=== PATIENT | female | born 1995 | race African-American/Black ===

== ENCOUNTER 2018-04-11 10:53 | Emergency (ER) | payer SELFPAY ==
[2018-04-11 11:42] LABS: BILIRUBIN,URINE NEGATIVE (NEG); CLARITY,URINE CLEAR; COLOR,URINE YELLOW; GLUCOSE,URINE NEGATIVE (NEG); NITRITE,URINE NEGATIVE (NEG); PROTEIN,URINE NEGATIVE (NEG-TRACE); UROBILINOGEN,URINE 0.2 mg/dL (0.2 mg/dL)
[2018-04-11 11:44] LABS: NEG OBC UR NEG; POS OBC UR POS; U PREG PATIENT NEGATIVE (NEG)
[2018-04-11 11:52] LABS: BACTERIA,URINE MANY /HPF (0-FEW); SQUAMOUS EPITHELIAL CELL,UR MANY /LPF
[2018-04-11 12:05] LABS: ADD MAN DIFF? NO
[2018-04-11 12:08] LABS: BASO # 0.1 x10^3/uL (0.0-0.2); BASO % 1 % (0-3); EOS # 0.1 x10^3/uL (0.0-0.7); EOS % 2 % (0-3); HEMATOCRIT 37.3 % (36.0-47.0); LYMPH # 2.2 x10^3/uL (1.0-4.8); LYMPH % 42 % (24-48); MEAN CORPUSCULAR HEMOGLOBIN 25 pg (25-35); MEAN CORPUSCULAR HGB CONC 32 g/dL (31-37); MEAN CORPUSCULAR VOLUME 76 fL (79-100); MONO # 0.3 x10^3/uL (0.0-1.1); MONO % 6 % (0-9); NEUT # 2.5 x10^3uL (1.8-7.7); NEUT % 49 % (31-73); PLATELET COUNT 277 x10^3/uL (140-400); RED BLOOD COUNT 4.88 x10^6/uL (3.50-5.40); RED CELL DISTRIBUTION WIDTH 18.8 % (11.5-14.5); WHITE BLOOD COUNT 5.1 x10^3/uL (4.0-11.0)
[2018-04-11 12:15] LABS: ANION GAP 6 (6-14); BLOOD UREA NITROGEN 11 mg/dL (7-20); BUN/CREATININE RATIO 14 (6-20); CALCIUM 9.1 mg/dL (8.5-10.1); CARBON DIOXIDE 31 mmol/L (21-32); CHLORIDE 104 mmol/L (98-107); CREATININE 0.8 mg/dL (0.6-1.0); GFR 109.6; GLUCOSE 86 mg/dL (70-99); POTASSIUM 4.2 mmol/L (3.5-5.1); SODIUM 141 mmol/L (136-145)
[2018-04-11 12:21] LABS: ALBUMIN 3.8 g/dL (3.4-5.0); ALBUMIN/GLOBULIN RATIO 0.9 (1.0-1.7); ALK PHOS 62 U/L (46-116); ALT (SGPT) 15 U/L (14-59); AST (SGOT) 17 U/L (15-37); TOTAL BILIRUBIN 0.2 mg/dL (0.2-1.0); TOTAL PROTEIN 7.9 g/dL (6.4-8.2)
== END 2018-04-11 14:30 | disposition home or self-care (01) ==
LOC: ER 10:53
DX: N92.1 Excessive and frequent menstruation with irregular cycle (principal); R10.32 Left lower quadrant pain; N90.7 Vulvar cyst; Z88.0 Allergy status to penicillin
CPT/HCPCS: 36415; 76830; 76856; 80053; 81001; 81025; 85025; 87491; 87591; 99285-25

== ENCOUNTER 2018-09-26 13:25 | Emergency (ER) | payer SELFPAY ==
[~2018-09-26] VITALS: Ht 165.1 cm; Wt 57.6 kg
[~2018-09-26 13:25] MED LIST: METR500T PO; SULF1TAB24 PO
[2018-09-26 13:58] LABS: BILIRUBIN,URINE NEGATIVE (NEG); CLARITY,URINE CLOUDY; COLOR,URINE YELLOW; NITRITE,URINE POSITIVE (NEG); PH,URINE 7.5; PROTEIN,URINE NEGATIVE (NEG-TRACE); UROBILINOGEN,URINE 0.2 mg/dL (0.2 mg/dL)
[2018-09-26 14:03] LABS: SQUAMOUS EPITHELIAL CELL,UR MANY /LPF
[2018-09-26 14:05] LABS: BACTERIA,URINE MANY /HPF (0-FEW); RBC,URINE 0 /HPF (0-2); WBC,URINE >40 /HPF (0-4)
[2018-09-26] MEDS ORDERED: IBUPROFEN 600 MG TABLET. PO ONE (14:15)
[2018-09-26] MEDS ORDERED: METR500T PO (15:54)
[2018-09-26] MEDS ORDERED: DOXY100T PO (15:54)
[2018-09-26] MEDS ORDERED: SULF1TAB24 PO (15:54)
[2018-09-26 16:04] VITALS: BP 116/70
--- NOTE | 2018-09-26 16:13 | PHYS DOC ---
Past Medical History Past Medical History: Asthma, Other Additional Past Medical Histor: kidney stones Past Surgical History: No Surgical History Alcohol Use: None Drug Use: None Adult General Chief Complaint Chief Complaint: SEXUALLY TRANSMITTED DISEASE HPI HPI Patient is a 23 year olD female who presents with right lower abdominal discomfort as well as vaginal discharge for the last 3 days. Apparently her boyfriend's mother called her and told her to get checked for STDs. She has dysuria. Review of Systems Review of Systems Constitutional: Denies fever or chills [] Eyes: Denies change in visual acuity, redness, or eye pain [] HENT: Denies nasal congestion or sore throat [] GI: Denies abdominal pain, nausea, vomiting, bloody stools or diarrhea [] : Denies dysuria or hematuria [] Musculoskeletal: Denies back pain or joint pain [] Integument: Denies rash or skin lesions [] All other systems were reviewed and found to be within normal limits, except as documented in this note. Current Medications Current Medications Current Medications Medications (Trade) Dose Ordered Sig/Alexandra Start Time Stop Time Status Last Admin Dose Admin Ibuprofen (Motrin) 600 mg 1X ONCE 09/26/18 14:15 09/26/18 14:16 DC 09/26/18 15:20 600 MG Allergies Allergies Allergies Coded Allergies Type Severity Reaction Last Updated Verified Penicillins Allergy Mild vomiting, 12/09/13 Yes Physical Exam Physical Exam Constitutional: Well developed, well nourished, no acute distress, non-toxic appearance. [] HENT: Normocephalic, atraumatic, bilateral external ears normal, oropharynx moist, no oral exudates, nose normal. [] Eyes: PERRLA, EOMI, conjunctiva normal, no discharge. [] Pulmonary: Normal respiratory effort no increased work of breathing no obvious chest wall trauma Abdomen: Bowel sounds normal, soft, mild suprapubic tenderness, no masses, no pulsatile masses. [] : THERE IS MODERATE D/C NO ADNEXAL OR CMT Skin: Warm, dry, no erythema, no rash. [] Back: No tenderness, no CVA tenderness. [] Extremities: No tenderness, no cyanosis, no clubbing, ROM intact, no edema. [] Neurologic: Alert and oriented X 3, normal motor function, normal sensory function, no focal deficits noted. [] Psychologic: Affect normal, judgement normal, mood normal. [] Current Patient Data Vital Signs Vital Signs Date Time Temp Pulse Resp B/P (MAP) Pulse Ox O2 Delivery O2 Flow Rate FiO2 09/26/18 15:06 68 16 122/74 (90) 100 Room Air 09/26/18 13:30 98.2 98.2 Lab Values Laboratory Tests Test 09/26/18 13:35 09/26/18 13:52 Urine Collection Type Unknown Urine Color Yellow Urine Clarity Cloudy Urine pH 7.5 Urine Specific [place] 1.015 Urine Protein Negative mg/dL (NEG-TRACE) Urine Glucose (UA) Negative mg/dL (NEG) Urine Ketones (Stick) Negative mg/dL (NEG) Urine Blood Small (NEG) Urine Nitrite Positive (NEG) Urine Bilirubin Negative (NEG) Urine Urobilinogen Dipstick 0.2 mg/dL (0.2 mg/dL) Urine Leukocyte Esterase Moderate (NEG) Urine RBC 0 /HPF (0-2) Urine WBC >40 /HPF (0-4) Urine Squamous Epithelial Cells Many /LPF Urine Bacteria Many /HPF (0-FEW) POC Urine HCG, Qualitative Hcg negative (Negative) Microbiology 09/26/18 Wet Prep - Final, Complete EKG EKG [] Radiology/Procedures Radiology/Procedures [] Course & Med Decision Making Course & Med Decision Making Pertinent Labs and Imaging studies reviewed. (See chart for details) []UTI suggestive and urinalysis we will treat for that with Bactrim. Patient has a penicillin allergy she describes facial swelling so I will avoid ceftriaxone although it is low risk overall I think we should wait for a confirmed gonorrhea. She knows there is a culture pending and to have her phone number available for phone call. She was treated for possible chlamydia with doxycycline as well as Flagyl for bacterial vaginosis. Dragon Disclaimer Dragon Disclaimer This electronic medical record was generated, in whole or in part, using a voice recognition dictation system. Departure Departure Impression: Primary Impression: Urinary tract infection Additional Impression: UTI (lower urinary tract infection) Disposition: 01 HOME, SELF-CARE Condition: STABLE Referrals: ELIOT ANTONIO MD (PCP) Patient Instructions: Bacterial Vaginosis, [id number] Scripts Sulfamethoxazole/Trimethoprim (BACTRIM DS TABLET) 1 Each Tablet 1 TAB PO BID, #14 TAB Prov: DARRELL SIMPSON MD 09/26/18 Metronidazole (FLAGYL) 500 Mg Tablet 1 TAB PO BID, #14 TAB Prov: DARRELL SIMPSON MD 09/26/18 Doxycycline Hyclate (DOXYCYCLINE HYCLATE) 100 Mg Tablet 1 TAB PO BID, #28 TAB Prov: DARRELL SIMPSON MD 09/26/18 Problem Qualifiers DARRELL SIMPSON MD Sep 26, 2018 16:13
[2018-09-27 13:22] LABS: GC PROBE Negative (Negative)
== END 2018-09-26 16:11 | disposition home or self-care (01) ==
LOC: ER 13:25
DX: N39.0 Urinary tract infection, site not specified (principal); J45.909 Unspecified asthma, uncomplicated; Z87.442 Personal history of urinary calculi; Z88.0 Allergy status to penicillin
CPT/HCPCS: 81001; 81025; 87491; 87591; 99283; Q0111

== ENCOUNTER 2019-07-20 14:07 | Inpatient (IN) | payer OTHER ==
[~2019-07-20] VITALS: Ht 165.1 cm; Wt 53.5 kg
[~2019-07-20 14:07] MED LIST changes: +DOXY100T PO
[2019-07-20 15:27] LABS: BASO % 0 % (0-3); EOS % 0 % (0-3); HEMATOCRIT 36.9 % (36.0-47.0); HEMOGLOBIN 12.3 g/dL (12.0-15.5); LYMPH # 1.3 x10^3/uL (1.0-4.8); LYMPH % 13 % (24-48); MEAN CORPUSCULAR HEMOGLOBIN 28 pg (25-35); MEAN CORPUSCULAR HGB CONC 33 g/dL (31-37); MEAN CORPUSCULAR VOLUME 82 fL (79-100); MONO # 1.5 x10^3/uL (0.0-1.1); MONO % 15 % (0-9); NEUT # 7.2 x10^3/uL (1.8-7.7); NEUT % 71 % (31-73); PLATELET COUNT 244 x10^3/uL (140-400); RED BLOOD COUNT 4.48 x10^6/uL (3.50-5.40); WHITE BLOOD COUNT 10.1 x10^3/uL (4.0-11.0)
[2019-07-20 15:35] LABS: BILIRUBIN,URINE NEGATIVE (NEG); CLARITY,URINE CLEAR; COLOR,URINE YELLOW; NITRITE,URINE NEGATIVE (NEG); PROTEIN,URINE NEGATIVE (NEG-TRACE); UROBILINOGEN,URINE 0.2 mg/dL (0.2 mg/dL)
[2019-07-20 15:40] LABS: CALCIUM 9.4 mg/dL (8.5-10.1); CREATININE 0.6 mg/dL (0.6-1.0); GFR 151.3; POTASSIUM 4.1 mmol/L (3.5-5.1)
[2019-07-20 15:42] LABS: ALBUMIN 3.5 g/dL (3.4-5.0); ALBUMIN/GLOBULIN RATIO 0.8 (1.0-1.7); TOTAL BILIRUBIN 0.1 mg/dL (0.2-1.0); TOTAL PROTEIN 7.8 g/dL (6.4-8.2)
[2019-07-20 15:46] LABS: BACTERIA,URINE FEW /HPF (0-FEW); SQUAMOUS EPITHELIAL CELL,UR MANY /LPF
--- NOTE | 2019-07-20 15:49 | RAD ---
Indication:Pelvic cramps. 12 weeks . TECHNIQUE: Ultrasound OB less than 14 weeks. COMPARISON: None FINDINGS: Single intrauterine seen. [place]-rump length measures 4.92 cm corresponding to estimated gestation age of 11 weeks 5 days. Heart rate of 169 bpm. Cervix is closed. Right ovary measures 3.0 x 1.6 x 1.6 cm and shows evidence of blood flow. Left ovary measures 2.7 x 1.2 x 1.7 cm and shows evidence of blood flow. No free pelvic fluid. IMPRESSION: Single live viable intrauterine corresponding to estimated gestation age of 11 weeks 5 days and due date of 02/03/2020. Electronically signed by: Lamonte Young DO (07/20/2019 3:46 PM) [facility]
--- NOTE | 2019-07-20 16:01 | PHYS DOC ---
Past Medical History Past Medical History: Asthma, Kidney Stone Additional Past Medical Histor: kidney stones Past Surgical History: No Surgical History Alcohol Use: None Drug Use: None Adult General Chief Complaint Chief Complaint: VOMITING IN HPI HPI Patient is a 23 year old AA female, who presents to the emergency department with complaints of nausea, vomiting, and pelvic pain. Patient states she is currently , her FINAL TOUCH UP PAINTER is Dr. Curry. Patient's last menstrual cycle was on April 26, 2019 and her estimated due date is February 062019. She is 3, para 1, 1. She denies any low back pain, irregular vaginal discharge, vaginal bleeding, or vaginal odor. Patient states she was seen by Dr. Curry on Sunday and diagnosed with urinary tract infection. She reports dysuria, and increased urinary frequency, she denies any hematuria or fever. Patient states one week ago she had right flank pain and was diagnosed with a kidney stone. Patient states she was unable to fill the prescription for medication was that prescribed by Dr. Curry on Sunday because the prescription did not transmit electronically to the pharmacy. She reports her last bowel movement was yest erday. She currently rates her pelvic pain and 8 out of 10 on the pain scale, she denies any alleviating or exacerbating factors. Patient states she has lost 18 pounds since the beginning of this and Dr. Curry told her if she did not gain weight at her next visit she would need to be admitted. Review of Systems Review of Systems Constitutional: Denies fever or chills [] Eyes: Denies change in visual acuity, redness, or eye pain [] HENT: Denies nasal congestion or sore throat [] Respiratory: Denies cough or shortness of breath [] Cardiovascular: No additional information not addressed in HPI [] GI: Denies bloody stools or diarrhea; see HPI : Denies hematuria; see HPI Musculoskeletal: Denies back pain or joint pain [] Integument: Denies rash or skin lesions [] Neurologic: Denies headache Complete systems were reviewed and found to be within normal limits, except as documented in this note. Current Medications Current Medications Allergies Allergies Allergies Coded Allergies Type Severity Reaction Last Updated Verified Penicillins Allergy Mild vomiting, 12/09/13 Yes Physical Exam Physical Exam Constitutional: Well developed, well nourished, no acute distress, non-toxic appearance. [] HENT: Normocephalic, atraumatic, bilateral external ears normal, dry mucous membranes, dry lips, no oral exudates, nose normal. [] Eyes: PERRLA, EOMI, conjunctiva normal, no discharge. [] Neck: Normal range of motion, no stridor. [] Cardiovascular:Heart rate regular rhythm, no murmur [] Lungs & Thorax: Bilateral breath sounds clear to auscultation [] Abdomen: Bowel sounds normal, soft, suprapubic TTP, no abdominal tenderness, no masses, no pulsatile masses. [] Skin: Warm, dry, no erythema, no rash. [] Back: No tenderness, no CVA tenderness. [] Extremities: No cyanosis, ROM intact, no edema. [] Neurologic: Alert and oriented X 3, no focal deficits noted. [] Psychologic: Affect normal, judgement normal, mood normal. [] Current Patient Data Vital Signs Vital Signs Date Time Temp Pulse Resp B/P (MAP) Pulse Ox O2 Delivery O2 Flow Rate FiO2 07/20/19 16:18 80 16 97/63 (74) 97 Room Air 07/20/19 14:30 98.5 98.5 Lab Values Laboratory Tests Test 07/20/19 14:24 07/20/19 14:35 Urine Collection Type Unknown Urine Color Yellow Urine Clarity Clear Urine pH 7.0 Urine Specific [place] 1.015 Urine Protein Negative mg/dL (NEG-TRACE) Urine Glucose (UA) Negative mg/dL (NEG) Urine Ketones (Stick) Negative mg/dL (NEG) Urine Blood Trace (NEG) Urine Nitrite Negative (NEG) Urine Bilirubin Negative (NEG) Urine Urobilinogen Dipstick 0.2 mg/dL (0.2 mg/dL) Urine Leukocyte Esterase Moderate (NEG) Urine RBC 1-2 /HPF (0-2) Urine WBC 1-4 /HPF (0-4) Urine Squamous Epithelial Cells Many /LPF Urine Bacteria Few /HPF (0-FEW) Urine Mucus Slight /LPF White Blood Count 10.1 x10^3/uL (4.0-11.0) Red Blood Count 4.48 x10^6/uL (3.50-5.40) Hemoglobin 12.3 g/dL (12.0-15.5) Hematocrit 36.9 % (36.0-47.0) Mean Corpuscular Volume 82 fL (79-100) Mean Corpuscular Hemoglobin 28 pg (25-35) Mean Corpuscular Hemoglobin Concent 33 g/dL (31-37) Red Cell Distribution Width 16.0 % (11.5-14.5) H Platelet Count 244 x10^3/uL (140-400) Neutrophils (%) (Auto) 71 % (31-73) Lymphocytes (%) (Auto) 13 % (24-48) L Monocytes (%) (Auto) 15 % (0-9) H Eosinophils (%) (Auto) 0 % (0-3) Basophils (%) (Auto) 0 % (0-3) Neutrophils # (Auto) 7.2 x10^3/uL (1.8-7.7) Lymphocytes # (Auto) 1.3 x10^3/uL (1.0-4.8) Monocytes # (Auto) 1.5 x10^3/uL (0.0-1.1) H Eosinophils # (Auto) 0.0 x10^3/uL (0.0-0.7) Basophils # (Auto) 0.0 x10^3/uL (0.0-0.2) Maternal Serum HCG Beta Subunit 889057 mIU/mL (0-5) H Sodium Level 140 mmol/L (136-145) Potassium Level 4.1 mmol/L (3.5-5.1) Chloride Level 103 mmol/L (98-107) Carbon Dioxide Level 30 mmol/L (21-32) Anion Gap 7 (6-14) Blood Urea Nitrogen 7 mg/dL (7-20) Creatinine 0.6 mg/dL (0.6-1.0) Estimated GFR (Cockcroft-Gault) 151.3 BUN/Creatinine Ratio 12 (6-20) Glucose Level 70 mg/dL (70-99) Calcium Level 9.4 mg/dL (8.5-10.1) Total Bilirubin 0.1 mg/dL (0.2-1.0) L Aspartate Amino Transferase (AST) 13 U/L (15-37) L Alanine Aminotransferase (ALT) 12 U/L (14-59) L Alkaline Phosphatase 53 U/L (46-116) Total Protein 7.8 g/dL (6.4-8.2) Albumin 3.5 g/dL (3.4-5.0) Albumin/Globulin Ratio 0.8 (1.0-1.7) L Lipase 95 U/L (73-393) Laboratory Tests 07/20/19 14:35 Laboratory Tests 07/20/19 14:35 EKG EKG [] Radiology/Procedures Radiology/Procedures PROCEDURE: OB < 14 WKS Indication:Pelvic cramps. 12 weeks . TECHNIQUE: Ultrasound OB less than 14 weeks. COMPARISON: None FINDINGS: Single intrauterine seen. [place]-rump length measures 4.92 cm corresponding to estimated gestation age of 11 weeks 5 days. Heart rate of 169 bpm. Cervix is closed. Right ovary measures 3.0 x 1.6 x 1.6 cm and shows evidence of blood flow. Left ovary measures 2.7 x 1.2 x 1.7 cm and shows evidence of blood flow. No free pelvic fluid. IMPRESSION: Single live viable intrauterine corresponding to estimated gestation age of 11 weeks 5 days and due date of 02/03/2020.[] Course & Med Decision Making Course & Med Decision Making Pertinent Labs and Imaging studies reviewed. (See chart for details) Dx: hyperemesis gravidarum Pt was given 4 mg of zofran, 1L NS and 10 mg of Reglan in the ER, states she feels a little better Pelvic US negative for any acute findings. Viable IUP with HR of 169 Spoke with who is the admitting physician, and care was assumed following discussion of patient. Will order Zofran 8 mg IV Q6 hours scheduled, 10 mg Reglan IVP q8 hours prn nausea, and LR at 175 ml.hr and admit pt for observation as instructed by Dr. Mcintosh Patient's vital signs stable. Patient remains afebrile, appears nontoxic, respirations even and unlabored. Patient will be admitted to the [facility] floor. Patient's case and plan of care also discussed with [] Dru Disclaimer Dragon Disclaimer This electronic medical record was generated, in whole or in part, using a voice recognition dictation system. Departure Departure Impression: Primary Impression: Hyperemesis gravidarum Disposition: 09 ADMITTED INPATIENT Admitting Physician: TERRENCE ([place]) Condition: STABLE Referrals: ELIOT CURRY MD (PCP) KRISHNA NAVA [employer] FELLOW Jul 20, 2019 16:01
[2019-07-20] MEDS ORDERED: METOCLOPRAMIDE HCL 10 MG/2 ML VIAL. IVP ONE ×2 (16:30→17:00)
[2019-07-20] MEDS: ONDANSETRON PF 4 MG/2 ML VIAL. IV SCH ×2 (16:59→17:05)
[2019-07-20] MEDS ORDERED: IV RINGERS,LACTATED 1000ML 1,000 ML IV ONE (17:00)
[2019-07-20 18:00] VITALS: BP 113/67
[2019-07-20] MEDS ORDERED: METOCLOPRAMIDE HCL 10 MG/2 ML VIAL. IVP PRN (18:00)
--- NOTE | 2019-07-20 18:00 | NUR ---
Pt. to room 305 via w/c from ER. Pt. oriented to POC and call light. Pt. states nausea medication in ER helped her nausea. Pt with complaints of back pain by her kidneys. Pt. up to bathroom and ambulated with standby assist. Pt. able to void clear yellow urine. Dinner tray ordered, assessment completed. Pt denies further needs at this time.
[2019-07-20] MEDS: IV RINGERS,LACTATED 1000ML 1,000 ML IV SCH ×2 (18:04→23:44)
--- NOTE | 2019-07-20 18:30 | PDOC1 ---
OB - History Hx of Present Care: Good Care Ultrasounds: No ultrasounds Obstetrical Complications: Hyperemesis, Other (Untreated UTI) Medical Complications: None Past Family/Social History * Past Medical, Surgical, Family and Obstetric Histories reviewed from chart. Blood Type: Unknown Rubella: Unknown RPR/VDRL: Unknown GBS Status: Unknown HBsAG: Unknown OB - Chief Complaint & HPI Date of Admission: Date of Admission: Jul 20, 2019 at 16:24 Chief Complaint/History : 2 Para: 1 EGA: 12 Reason for admission: observation (hyperemesis and untreated UTI) Admission Nurse Assessment Rev: Yes OB - Admission Exam Physical Exam Vitals: VS - Last 72 Hours, by Label Date Time Temp Pulse Resp B/P (MAP) Pulse Ox O2 Delivery O2 Flow Rate FiO2 07/20/19 17:18 90 14 109/68 (82) 96 Room Air 07/20/19 16:44 77 16 106/62 (77) 99 Room Air 07/20/19 16:18 80 16 97/63 (74) 97 Room Air 07/20/19 15:48 80 17 103/66 (78) 100 Room Air 07/20/19 15:18 80 17 112/72 (85) 99 Room Air 07/20/19 14:30 98.5 79 18 117/75 (89) 99 Room Air 98.5 HEENT: Normal Heart: Regular Rate Lungs: Clear Abdomen: Gravid Extremities: Edema Reflexes: Normal Cervical Dilatation: None Effacement: 0% Station: Ballotable Membranes: Intact Heart Rate: Normal Accelerations: Accelerations Present Contractions on Admission: None Text A: 12 wks IUP Hyperemesis Gravidarum Untreated UTI P: Observation for IV hydration, antiemetics and IV Rocephin for untreated UTI. XIOMARA NOBLES Jr, MD Jul 20, 2019 18:29
[2019-07-20] MEDS: ONDANSETRON PF 4 MG/2 ML VIAL. IVP SCH (18:33)
[2019-07-20] MEDS: cefTRIAXone IV Push 1 GM VIAL. IVP SCH (20:08)
[2019-07-20 20:25] VITALS: BP 106/62
[2019-07-20] MEDS: ACETAMINOPHEN 325 MG TABLET. PO PRN (21:05)
[2019-07-21] MEDS ORDERED: INFLUENZA VAX SCREEN BY RX. MC PRN (00:15)
[2019-07-21] MEDS: ONDANSETRON PF 4 MG/2 ML VIAL. IVP SCH ×5 (00:24→23:49)
[2019-07-21 02:30] VITALS: BP 90/52
[2019-07-21] MEDS: IV RINGERS,LACTATED 1000ML 1,000 ML IV SCH ×4 (05:30→20:50)
[2019-07-21] MEDS: ACETAMINOPHEN 325 MG TABLET. PO PRN ×2 (05:30→16:45)
[2019-07-21 05:36] VITALS: BP 85/47
[2019-07-21] MEDS: PANTOPRAZOLE 40 MG TABLET.DR. PO SCH (09:27)
[2019-07-21 10:00] VITALS: BP 98/68
[2019-07-21] MEDS ORDERED: FLU VAX QS 2019-20 (36MOS+)/PF 0.5 ML SYRINGE. VAX IM ONE (14:00)
[2019-07-21] MEDS ORDERED: DIPHTH,PERTUSS(ACELL),TET TOX 0.5 ML DISP.SYRIN. VAX IM ONE (14:00)
[2019-07-21] MEDS: BENZOCAINE/MENTHOL LOZENGE. PO PRN (16:45)
[2019-07-21 17:01] VITALS: BP 105/65
--- NOTE | 2019-07-21 17:42 | PDOC ---
Provider Note Provider Note nausea improved Temp 102 VSS' Check Cbc CMP CCC ELIOT ANTONIO MD Jul 21, 2019 17:42
[2019-07-21] MEDS: cefTRIAXone IV Push 1 GM VIAL. IVP SCH (18:00)
[2019-07-21 19:24] LABS: ALBUMIN 2.8 g/dL (3.4-5.0); ALBUMIN/GLOBULIN RATIO 0.8 (1.0-1.7); CALCIUM 8.9 mg/dL (8.5-10.1); CREATININE 0.7 mg/dL (0.6-1.0); GFR 126.6; POTASSIUM 3.9 mmol/L (3.5-5.1); TOTAL BILIRUBIN 0.1 mg/dL (0.2-1.0); TOTAL PROTEIN 6.5 g/dL (6.4-8.2)
[2019-07-21 19:53] VITALS: BP 110/95
[2019-07-22] MEDS: ONDANSETRON PF 4 MG/2 ML VIAL. IVP SCH ×2 (05:57→12:03)
[2019-07-22 07:21] LABS: BASO % 0 % (0-3); EOS % 0 % (0-3); HEMOGLOBIN 10.8 g/dL (12.0-15.5); LYMPH # 1.2 x10^3/uL (1.0-4.8); LYMPH % 14 % (24-48); MEAN CORPUSCULAR HEMOGLOBIN 28 pg (25-35); MEAN CORPUSCULAR HGB CONC 34 g/dL (31-37); MEAN CORPUSCULAR VOLUME 81 fL (79-100); MONO # 1.2 x10^3/uL (0.0-1.1); MONO % 14 % (0-9); NEUT # 6.3 x10^3/uL (1.8-7.7); NEUT % 72 % (31-73); PLATELET COUNT 205 x10^3/uL (140-400); RED BLOOD COUNT 3.93 x10^6/uL (3.50-5.40); RED CELL DISTRIBUTION WIDTH 15.7 % (11.5-14.5); WHITE BLOOD COUNT 8.7 x10^3/uL (4.0-11.0)
[2019-07-22 08:30] VITALS: BP 100/62
[2019-07-22] MEDS: BENZOCAINE/MENTHOL LOZENGE. PO PRN (08:42)
[2019-07-22] MEDS: ACETAMINOPHEN 325 MG TABLET. PO PRN ×2 (08:42→17:59)
[2019-07-22] MEDS: PANTOPRAZOLE 40 MG TABLET.DR. PO SCH (08:42)
[2019-07-22] MEDS: IV RINGERS,LACTATED 1000ML 1,000 ML IV SCH ×3 (08:43→15:15)
[2019-07-22 17:49] VITALS: BP 90/54
[2019-07-22] MEDS: cefTRIAXone IV Push 1 GM VIAL. IVP SCH (17:59)
[2019-07-22] MEDS: ONDANSETRON ODT 4 MG TAB.RAPDIS. PO PRN (18:02)
[2019-07-22 21:00] VITALS: BP 89/51
[2019-07-23] MEDS: ACETAMINOPHEN 325 MG TABLET. PO PRN (00:02)
[2019-07-23 03:00] VITALS: BP 95/60
[2019-07-23] MEDS: IV RINGERS,LACTATED 1000ML 1,000 ML IV SCH (06:01)
[2019-07-23] MEDS: PANTOPRAZOLE 40 MG TABLET.DR. PO SCH (08:11)
[2019-07-23] MEDS: ONDANSETRON ODT 4 MG TAB.RAPDIS. PO PRN (08:13)
[2019-07-23 10:55] VITALS: BP 103/71
--- NOTE | 2019-07-23 13:18 | NUR ---
pt refuses tdap and flu at this visit
--- NOTE | 2019-07-23 13:53 | PDOC3 ---
OB DISCHARGE SUMMARY DATE OF ADMISSION: 07/20/19 DATE OF DISCHARGE: 07/23/19 REASON FOR ADMISSION: Observation/evaluation, Other (HEG) PROCEDURES: Ultrasound, Mgmt of OB Complications PROBLEM LIST AT DISCHARGE Problems Medical Problems: (1) Hyperemesis gravidarum Status: Acute DISCHARGE DIAGNOSIS: Others (HEG) DISCHARGE INFORMATION: Activity, Diet HOSPITAL COURSE Unremarkable CONDITION AT DISCHARGE Stable ELIOT ANTONIO MD Jul 23, 2019 13:53
--- NOTE | 2019-07-23 13:55 | PDOC ---
Provider Note Provider Note Late entry Improving Change ot STEPHANIET [place] encourage ambulation Anticipate home in AM ELIOT ANTONIO MD Jul 23, 2019 13:54
== END 2019-07-23 14:59 | disposition home or self-care (01) | DRG 832 ==
LOC: ER 14:07 → 3 NORTH 16:24 → OBSVTOIN 07-21 18:24
PROVIDERS: ADMIT Obstetrics & Gynecology; ATTEND Obstetrics & Gynecology
DX: O21.0 Mild hyperemesis gravidarum (principal); O23.41 Unspecified infection of urinary tract in pregnancy, first trimester; Z3A.12 12 weeks gestation of pregnancy; O99.511 Diseases of the respiratory system complicating pregnancy, first trimester; J45.909 Unspecified asthma, uncomplicated; Z87.442 Personal history of urinary calculi; Z88.0 Allergy status to penicillin
CPT/HCPCS: 36415; 76801; 80053; 81001; 83690; 84702; 85025; 87086; 87186; 96361; 96374; 96375; G0378; G0379; J0696; J2405; J2765; J7120; Q0162; 99285-25

== ENCOUNTER 2019-07-30 11:25 | Emergency (ER) | payer OTHER ==
[~2019-07-30] VITALS: Ht 170.2 cm; Wt 53.5 kg
--- NOTE | 2019-07-30 11:44 | PHYS DOC ---
Past Medical History Past Medical History: Asthma, Kidney Stone Additional Past Medical Histor: kidney stones Past Surgical History: No Surgical History Alcohol Use: None Drug Use: None Adult General Chief Complaint Chief Complaint: ABDOMINAL PAIN IN HPI HPI Patient is a 23 year old female 3 para 1, 1, approximately 12 weeks who presents to the ED today complaining of 10 out of 10 sharp constant left-sided abdominal pain that began today. Patient is also complaining of nausea and vomiting since yesterday. She states she is supposed to see her FALL INTERN today at 11:30 for follow-up appointment after being admitted a week ago for similar symptoms but could not make it for the appointment. Patient denies any exacerbating or relieving factors to her symptoms, she states she tried taking her ODT Zofran with no relief. Denies any vaginal bleeding. She is crying out loud FALL INTERN Dr. Curry Review of Systems Review of Systems Constitutional: Denies fever or chills [] Eyes: Denies change in visual acuity, redness, or eye pain [] HENT: Denies nasal congestion or sore throat [] Respiratory: Denies cough or shortness of breath [] Cardiovascular: No additional information not addressed in HPI [] GI: Reports abdominal pain with nausea and vomiting denies any bloody stools or diarrhea [] : Denies dysuria or hematuria [] Musculoskeletal: Denies back pain or joint pain [] Integument: Denies rash or skin lesions [] Neurologic: Denies headache, focal weakness or sensory changes [] All other systems were reviewed and found to be within normal limits, except as documented in this note. Current Medications Current Medications Current Medications Medications (Trade) Dose Ordered Sig/Alexandra Start Time Stop Time Status Last Admin Dose Admin Azithromycin (Zithromax) 1,000 mg 1X ONCE 07/30/19 13:45 07/30/19 13:49 DC 07/30/19 13:57 1,000 MG Ceftriaxone Sodium (Rocephin) 1 gm 1X ONCE 07/30/19 13:45 07/30/19 13:49 DC 07/30/19 13:57 1 GM Metronidazole (Flagyl) 2,000 mg 1X ONCE 07/30/19 13:45 07/30/19 13:49 DC 07/30/19 13:56 2,000 MG Morphine Sulfate (Morphine Sulfate) 5 mg 1X ONCE 07/30/19 12:15 07/30/19 12:16 DC 07/30/19 12:09 5 MG Ondansetron HCl (Zofran) 4 mg 1X ONCE 07/30/19 13:45 07/30/19 13:49 DC 07/30/19 13:57 4 MG Prochlorperazine Edisylate (Compazine) 10 mg 1X ONCE 07/30/19 12:15 07/30/19 12:16 DC 07/30/19 12:07 10 MG Sodium Chloride 1,000 ml @ 1,000 mls/hr 1X ONCE 07/30/19 11:45 07/30/19 12:44 DC 07/30/19 12:10 1,000 MLS/HR Allergies Allergies Allergies Coded Allergies Type Severity Reaction Last Updated Verified Penicillins Allergy Mild vomiting, 12/09/13 Yes Physical Exam Physical Exam Constitutional: Well developed, well nourished, no acute distress, non-toxic appearance. [] HENT: Normocephalic, atraumatic, bilateral external ears normal, oropharynx moist, no oral exudates, nose normal. [] Eyes: PERRLA, EOMI, conjunctiva normal, no discharge. [] Neck: Normal range of motion, no tenderness, supple, no stridor. [] Cardiovascular:Heart rate regular rhythm, no murmur [] Lungs & Thorax: Bilateral breath sounds clear to auscultation [] Abdomen: Bowel sounds normal, soft, diffuse tenderness to the left side of the abdomen, no right upper quadrant or right lower quadrant tenderness, no masses, no pulsatile masses. [] Skin: Warm, dry, no erythema, no rash. [] Back: No tenderness, no CVA tenderness. [] Extremities: No tenderness, no cyanosis, no clubbing, ROM intact, no edema. [] Neurologic: Alert and oriented X 3, normal motor function, normal sensory function, no focal deficits noted. [] Psychologic: Patient is crying out loud. Current Patient Data Vital Signs Vital Signs Date Time Temp Pulse Resp B/P (MAP) Pulse Ox O2 Delivery O2 Flow Rate FiO2 07/30/19 12:30 70 16 103/55 (71) 100 Room Air 07/30/19 11:27 98.7 98.7 Lab Values Laboratory Tests Test 07/30/19 11:41 07/30/19 12:05 Urine Collection Type Void Urine Color Yellow Urine Clarity Clear Urine pH 5.5 Urine Specific [place] 1.020 Urine Protein Negative mg/dL (NEG-TRACE) Urine Glucose (UA) Negative mg/dL (NEG) Urine Ketones (Stick) Negative mg/dL (NEG) Urine Blood Small (NEG) Urine Nitrite Negative (NEG) Urine Bilirubin Negative (NEG) Urine Urobilinogen Dipstick 0.2 mg/dL (0.2 mg/dL) Urine Leukocyte Esterase Moderate (NEG) Urine RBC 3-5 /HPF (0-2) Urine WBC 20-40 /HPF (0-4) Urine Squamous Epithelial Cells Many /LPF Urine Bacteria Few /HPF (0-FEW) Urine Mucus Marked /LPF Urine Trichomonas Present Urine Opiates Screen Neg (NEG) Urine Methadone Screen Neg (NEG) Urine Barbiturates Neg (NEG) Urine Phencyclidine Screen Neg (NEG) Urine Amphetamine/Methamphetamine Neg (NEG) Urine Benzodiazepines Screen Neg (NEG) Urine Cocaine Screen Neg (NEG) Urine Cannabinoids Screen Pos (NEG) Urine Ethyl Alcohol Neg (NEG) White Blood Count 13.1 x10^3/uL (4.0-11.0) H Red Blood Count 4.50 x10^6/uL (3.50-5.40) Hemoglobin 12.2 g/dL (12.0-15.5) Hematocrit 36.8 % (36.0-47.0) Mean Corpuscular Volume 82 fL (79-100) Mean Corpuscular Hemoglobin 27 pg (25-35) Mean Corpuscular Hemoglobin Concent 33 g/dL (31-37) Red Cell Distribution Width 15.2 % (11.5-14.5) H Platelet Count 305 x10^3/uL (140-400) Neutrophils (%) (Auto) 80 % (31-73) H Lymphocytes (%) (Auto) 15 % (24-48) L Monocytes (%) (Auto) 5 % (0-9) Eosinophils (%) (Auto) 0 % (0-3) Basophils (%) (Auto) 0 % (0-3) Neutrophils # (Auto) 10.4 x10^3/uL (1.8-7.7) H Lymphocytes # (Auto) 1.9 x10^3/uL (1.0-4.8) Monocytes # (Auto) 0.7 x10^3/uL (0.0-1.1) Eosinophils # (Auto) 0.0 x10^3/uL (0.0-0.7) Basophils # (Auto) 0.0 x10^3/uL (0.0-0.2) Maternal Serum HCG Beta Subunit 041598 mIU/mL (0-5) H Sodium Level 142 mmol/L (136-145) Potassium Level 4.1 mmol/L (3.5-5.1) Chloride Level 105 mmol/L (98-107) Carbon Dioxide Level 28 mmol/L (21-32) Anion Gap 9 (6-14) Blood Urea Nitrogen 8 mg/dL (7-20) Creatinine 0.6 mg/dL (0.6-1.0) Estimated GFR (Cockcroft-Gault) 151.3 BUN/Creatinine Ratio 13 (6-20) Glucose Level 81 mg/dL (70-99) Calcium Level 9.2 mg/dL (8.5-10.1) Total Bilirubin 0.1 mg/dL (0.2-1.0) L Aspartate Amino Transferase (AST) 15 U/L (15-37) Alanine Aminotransferase (ALT) 12 U/L (14-59) L Alkaline Phosphatase 53 U/L (46-116) Total Protein 7.9 g/dL (6.4-8.2) Albumin 3.4 g/dL (3.4-5.0) Albumin/Globulin Ratio 0.8 (1.0-1.7) L Ethyl Alcohol Level < 10 mg/dL (0-10) Laboratory Tests 07/30/19 12:05 Laboratory Tests 07/30/19 12:05 EKG EKG [] Radiology/Procedures Radiology/Procedures []PROCEDURE: OB <14 WKS W/TV Examination: OB <14 WKS W/TV History: Abdominal pain in Comparison/Correlation: 07/20/2019 OB ultrasonogram Findings: OB ultrasound examination was performed. Uterus measures 11.9 cm x 9.5 cm x 9.8 cm. Intrauterine gestational sac is present. pole is present with crown-rump length of 6.36 cm corresponding to 12 weeks 5 days gestation. EDC by ultrasound is 02/06/2020. No subchorionic hemorrhage. heart rate is 173 bpm. Right ovary measures 3.9 cm x 2 cm x 1.7 cm. Left ovary measures 3.7 cm x 1.6 centimeter x 2.3 cm. Ovarian structure is normal. Normal ovarian flow on color Doppler imaging evident. No suspicious adnexal masses. Simple free fluid is present in the cul-de-sac superior to the uterus. Impression: Living intrauterine gestation corresponding with 12 weeks 5 days by crown-rump length. Interval growth is moderately less than expected upon correlation with the prior exam. Pelvic free fluid at the superior uterine cul-de-sac. This is of indeterminate significance. It is new since prior ultrasound exam. Electronically signed by: Jhonatan Manzo MD (07/30/2019 1:36 PM) [facility] DICTATED and SIGNED BY: JHONATAN MANZO MD DATE: 07/30/19 2537 Course & Med Decision Making Course & Med Decision Making Pertinent Labs and Imaging studies reviewed. (See chart for details) This is a 23-year-old female patient 3 para 1, 1 currently approximately 12 weeks presenting to the ED complaining of abdominal pain in that begun this morning as well as nausea and vomiting since yesterday. Patient was admitted to the hospital on July 23, 2019 for UTI as well as her emesis gravidarum. CBC with a WBC of 13.1, normal hemoglobin and hematocrit, CMP would not acute findings, beta hCG 1 38,411. Urine analysis appears contaminated though it has moderate amount of leukocytes and Trichomonas. Patient was given the standard STD treatment. Urine was sent for chlamydia. OB ultrasound-Living intrauterine gestation corresponding with 12 weeks 5 days by crown-rump length HR 173. Interval growth is moderately less than expected upon correlation with the prior exam. Pelvic free fluid at the superior uterine cul-de-sac. This is of indeterminate significance. It is new since prior ultrasound exam. The above ultrasound results were discussed with Dr. [id number] for Dr. Curry, he requested we discharge patient and instruct her to follow-up with the office next week. Patient was discharged on Microbid Dragon Disclaimer Dragon Disclaimer This electronic medical record was generated, in whole or in part, using a voice recognition dictation system. Departure Departure Impression: Primary Impression: Hyperemesis gravidarum Additional Impressions: Abdominal pain in UTI (lower urinary tract infection) Trichomonal urethritis Disposition: HOME, SELF-CARE Condition: STABLE Referrals: ELIOT CURRY MD (PCP) Patient Instructions: Abdominal Pain During , [id number], Trichomoniasis, Urinary Tract Infection Additional Instructions: You were seen for abdominal pain in . He also have urinary tract infection and Trichomonas. Please do not have any sexual intercourse for 2 week s. Please contact your sex partners and let them know you have Trichomonas and have them get treatment. Use protection at all times. Complete your antibiotics, follow-up with Dr. Curry next week. Your prescriptions were sent to your local pharmacy Script[facility] Promethazine Hcl (PROMETHAZINE HCL) 25 Mg Tablet 1 TAB PO PRN Q6HRS, #20 TAB Prov: DANTE MARTIN APRN 07/30/19 Nitrofurantoin Monohyd/M-Cryst (MACROBID 100 MG CAPSULE) 100 Mg Capsule 1 CAP PO BID for 7 Days, #14 CAP 0 Refills Prov: DANTE MARTIN APRN 07/30/19 Problem Qualifiers Additional Impressions: Abdominal pain in Trimester: second trimester Qualified Codes: O26.892 - Other specified related conditions, second trimester; R10.9 - Unspecified abdominal pain DANTE MARTIN APRN Jul 30, 2019 11:44
[2019-07-30] MEDS ORDERED: IV NORMAL SALINE 1000ML BAG 1,000 ML IV ONE (11:45)
[2019-07-30 11:52] LABS: BILIRUBIN,URINE NEGATIVE (NEG); CLARITY,URINE CLEAR; COLOR,URINE YELLOW; NITRITE,URINE NEGATIVE (NEG); PH,URINE 5.5; PROTEIN,URINE NEGATIVE (NEG-TRACE); UROBILINOGEN,URINE 0.2 mg/dL (0.2 mg/dL)
[2019-07-30 11:59] LABS: BARBITURATES NEG (NEG); BENZODIAZEPINES NEG (NEG); CANNABINOIDS POS (NEG); COCAINE NEG (NEG); METHADONE NEG (NEG); OPIATES NEG (NEG); PHENCYCLIDINE NEG (NEG)
[2019-07-30 12:01] LABS: AMPHETAMINE/METHAMPHETAMINE NEG (NEG); BACTERIA,URINE FEW /HPF (0-FEW); SQUAMOUS EPITHELIAL CELL,UR MANY /LPF; TRICHOMONAS,URINE PRESENT; WBC,URINE 20-40 /HPF (0-4)
[2019-07-30] MEDS ORDERED: PROCHLORPERAZINE 10 MG/2 ML VIAL. IV ONE (12:15)
[2019-07-30] MEDS ORDERED: MORPHINE SULFATE 10 MG/ML VIAL. IV ONE (12:15)
[2019-07-30 12:26] LABS: BASO % 0 % (0-3); EOS % 0 % (0-3); HEMATOCRIT 36.8 % (36.0-47.0); HEMOGLOBIN 12.2 g/dL (12.0-15.5); LYMPH # 1.9 x10^3/uL (1.0-4.8); LYMPH % 15 % (24-48); MEAN CORPUSCULAR HEMOGLOBIN 27 pg (25-35); MEAN CORPUSCULAR HGB CONC 33 g/dL (31-37); MEAN CORPUSCULAR VOLUME 82 fL (79-100); MONO # 0.7 x10^3/uL (0.0-1.1); MONO % 5 % (0-9); NEUT # 10.4 x10^3/uL (1.8-7.7); NEUT % 80 % (31-73); PLATELET COUNT 305 x10^3/uL (140-400); RED CELL DISTRIBUTION WIDTH 15.2 % (11.5-14.5); WHITE BLOOD COUNT 13.1 x10^3/uL (4.0-11.0)
[2019-07-30 12:31] LABS: CALCIUM 9.2 mg/dL (8.5-10.1); CREATININE 0.6 mg/dL (0.6-1.0); GFR 151.3; POTASSIUM 4.1 mmol/L (3.5-5.1)
[2019-07-30 12:37] LABS: ALBUMIN 3.4 g/dL (3.4-5.0); ALBUMIN/GLOBULIN RATIO 0.8 (1.0-1.7); TOTAL BILIRUBIN 0.1 mg/dL (0.2-1.0); TOTAL PROTEIN 7.9 g/dL (6.4-8.2)
--- NOTE | 2019-07-30 13:15 | NUR ---
Pt requesting drink of water. Per Stella LEDBETTER, request denied. Pt now requesting "chips" for her son. Pt again told that she is not to have anything to eat or drink but we have Gadiel Crackers for her son as we do not have chips available. Pt's son provided Gadiel Crackers.
--- NOTE | 2019-07-30 13:39 | RAD ---
Examination: OB <14 WKS W/TV History: Abdominal pain in Comparison/Correlation: 07/20/2019 OB ultrasonogram Findings: OB ultrasound examination was performed. Uterus measures 11.9 cm x 9.5 cm x 9.8 cm. Intrauterine gestational sac is present. pole is present with crown-rump length of 6.36 cm corresponding to 12 weeks 5 days gestation. EDC by ultrasound is 02/06/2020. No subchorionic hemorrhage. heart rate is 173 bpm. Right ovary measures 3.9 cm x 2 cm x 1.7 cm. Left ovary measures 3.7 cm x 1.6 centimeter x 2.3 cm. Ovarian structure is normal. Normal ovarian flow on color Doppler imaging evident. No suspicious adnexal masses. Simple free fluid is present in the cul-de-sac superior to the uterus. Impression: Living intrauterine gestation corresponding with 12 weeks 5 days by crown-rump length. Interval growth is moderately less than expected upon correlation with the prior exam. Pelvic free fluid at the superior uterine cul-de-sac. This is of indeterminate significance. It is new since prior ultrasound exam. Electronically signed by: Jhonatan Tran MD (07/30/2019 1:36 PM) [facility]
[2019-07-30] MEDS ORDERED: cefTRIAXone IV Push 1 GM VIAL. IVP ONE (13:45)
[2019-07-30] MEDS ORDERED: AZITHROMYCIN 250 MG TABLET. PO ONE (13:45)
[2019-07-30] MEDS ORDERED: metroNIDAZOLE 500 MG TABLET PO ONE (13:45)
[2019-07-30] MEDS ORDERED: ONDANSETRON PF 4 MG/2 ML VIAL. IVP ONE (13:45)
[2019-07-30 14:02] VITALS: BP 107/74
[2019-07-30] MEDS ORDERED: PROM25TA10 PO (14:18)
[2019-07-30] MEDS ORDERED: NITR100C62 PO (14:18)
== END 2019-07-30 14:20 | disposition home or self-care (01) ==
LOC: ER 11:25
DX: O21.0 Mild hyperemesis gravidarum (principal); O23.41 Unspecified infection of urinary tract in pregnancy, first trimester; O98.311 Other infections with a predominantly sexual mode of transmission complicating pregnancy, first trimester; A59.03 Trichomonal cystitis and urethritis; Z87.442 Personal history of urinary calculi; O99.511 Diseases of the respiratory system complicating pregnancy, first trimester; J45.909 Unspecified asthma, uncomplicated; Z3A.12 12 weeks gestation of pregnancy
CPT/HCPCS: 36415; 76801; 76817; 80053; 80307; 81001; 84702; 85025; 87086; 87491; 87591; 96361; 96374; 96375; 99285; G0480; J0696; J0780; J2270; J2405; J7030; Q0144

== ENCOUNTER → 2019-10-03 | Outpatient (CLI) | payer OTHER ==
[~2019-10-03] MED LIST changes: +NITR100C62 PO; +PROM25TA10 PO
--- NOTE | 2019-10-03 15:55 | RAD ---
Clinical indications: Uterine size date discrepancy COMPARISON: July 30, 2019. Findings: A single intrauterine fetus is seen in cephalic position. heart rate is 152 beats per minute. BPD is 5.35 cm which equals 20 weeks 2 days. HC is 19.36 cm which equals 21 weeks 4 days. AC is 16.76 cm which equals 21 weeks 5 days. FL is 3.9 cm which equals 22 weeks 4 days. Average gestational age by ultrasound is 22 weeks 0 days +/- 12 days with an EDC of February 06, 2020. There has been normal interval growth from the previous study. Estimated weight is 1 lbs and 10 oz. A four-chamber heart and three-vessel cord are identified. stomach and urinary bladder are identified. kidneys are unremarkable. Cord insertion site is unremarkable. The spine is morphologically normal in appearance. The intracranial structures are not well seen due to the systolic positioning. Four extremities are identified. MANDEEP using the four quadrant method is 10 cm. Cervical length is 4.4 cm. A grade 0 posterior placenta is seen. No placenta previa and no placenta abruptio is identified. The maternal ovaries are not visualized. Impression: Single IUP with gestational age of 22 weeks. Electronically signed by: Aniceto Whiting MD (10/03/2019 3:52 PM) [facility]
== END | disposition home or self-care (01) ==
LOC: US 13:53
PROVIDERS: ATTEND Obstetrics & Gynecology
DX: O26.842 Uterine size-date discrepancy, second trimester (principal); Z3A.22 22 weeks gestation of pregnancy
CPT/HCPCS: 76805

== ENCOUNTER → 2019-11-13 | Outpatient (CLI) | payer OTHER ==
[2019-11-13 09:58] LABS: BASO % 0 % (0-3); EOS # 0.1 x10^3/uL (0.0-0.7); EOS % 1 % (0-3); HEMATOCRIT 28.4 % (36.0-47.0); HEMOGLOBIN 9.4 g/dL (12.0-15.5); LYMPH # 1.7 x10^3/uL (1.0-4.8); LYMPH % 19 % (24-48); MEAN CORPUSCULAR HEMOGLOBIN 27 pg (25-35); MEAN CORPUSCULAR HGB CONC 33 g/dL (31-37); MEAN CORPUSCULAR VOLUME 82 fL (79-100); MONO # 0.7 x10^3/uL (0.0-1.1); MONO % 8 % (0-9); NEUT # 6.1 x10^3/uL (1.8-7.7); NEUT % 71 % (31-73); PLATELET COUNT 273 x10^3/uL (140-400); RED BLOOD COUNT 3.47 x10^6/uL (3.50-5.40); RED CELL DISTRIBUTION WIDTH 14.3 % (11.5-14.5); WHITE BLOOD COUNT 8.5 x10^3/uL (4.0-11.0)
== END | disposition home or self-care (01) ==
LOC: LAB 09:41
PROVIDERS: ATTEND Obstetrics & Gynecology
DX: O09.90 Supervision of high risk pregnancy, unspecified, unspecified trimester (principal); Z3A.00 Weeks of gestation of pregnancy not specified
CPT/HCPCS: 36415; 82950; 85025

== ENCOUNTER 2019-12-04 18:05 | Observation (INO) | payer OTHER ==
[2019-12-04] MEDS ORDERED: IV RINGERS,LACTATED 1000ML 1,000 ML IV SCH (18:09)
[2019-12-04 19:37] LABS: BILIRUBIN,URINE NEGATIVE (NEG); CLARITY,URINE CLEAR; COLOR,URINE YELLOW; NITRITE,URINE NEGATIVE (NEG); PH,URINE 5.5; PROTEIN,URINE NEGATIVE (NEG-TRACE)
[2019-12-04 19:40] LABS: SQUAMOUS EPITHELIAL CELL,UR MANY /LPF
[2019-12-04 19:41] LABS: AMORPHOUS SEDIMENT,UR PRESENT /HPF; BACTERIA,URINE MODERATE /HPF (0-FEW); RBC,URINE OCC /HPF (0-2)
== END 2019-12-04 20:05 | disposition home or self-care (01) ==
LOC: 3 SO LND 18:05
PROVIDERS: ADMIT Obstetrics & Gynecology; ATTEND Obstetrics & Gynecology
DX: O26.893 Other specified pregnancy related conditions, third trimester (principal); R10.9 Unspecified abdominal pain; R42 Dizziness and giddiness; Z3A.30 30 weeks gestation of pregnancy
CPT/HCPCS: 81001; 87086; G0378; G0379

== ENCOUNTER 2019-12-10 16:26 | Observation (INO) | payer OTHER ==
[2019-12-10] MEDS ORDERED: IV RINGERS,LACTATED 1000ML 1,000 ML IV PRN (17:00)
[2019-12-10 17:06] LABS: BASO % 1 % (0-3); EOS # 0.1 x10^3/uL (0.0-0.7); EOS % 1 % (0-3); HEMATOCRIT 27.5 % (36.0-47.0); HEMOGLOBIN 9.2 g/dL (12.0-15.5); LYMPH # 1.8 x10^3/uL (1.0-4.8); LYMPH % 22 % (24-48); MEAN CORPUSCULAR HEMOGLOBIN 26 pg (25-35); MEAN CORPUSCULAR HGB CONC 33 g/dL (31-37); MEAN CORPUSCULAR VOLUME 77 fL (79-100); MONO # 0.8 x10^3/uL (0.0-1.1); MONO % 9 % (0-9); NEUT # 5.5 x10^3/uL (1.8-7.7); NEUT % 67 % (31-73); PLATELET COUNT 283 x10^3/uL (140-400); RED BLOOD COUNT 3.59 x10^6/uL (3.50-5.40); RED CELL DISTRIBUTION WIDTH 15.4 % (11.5-14.5); WHITE BLOOD COUNT 8.3 x10^3/uL (4.0-11.0)
[2019-12-10] MEDS ORDERED: ACETAMINOPHEN 500 MG TABLET PO PRN (17:15)
== END 2019-12-10 18:56 | disposition home or self-care (01) ==
LOC: 3 SO LND 16:26
PROVIDERS: ADMIT Obstetrics & Gynecology; ATTEND Obstetrics & Gynecology
DX: Z34.83 Encounter for supervision of other normal pregnancy, third trimester (principal); Z3A.32 32 weeks gestation of pregnancy
CPT/HCPCS: 36415; 85025; 86850; 86900; 86901; G0378; G0379; J7120

== ENCOUNTER 2020-01-13 07:22 | Observation (INO) | payer OTHER ==
[2020-01-13] MEDS ORDERED: IV RINGERS,LACTATED 1000ML 1,000 ML IV SCH (07:28)
[2020-01-13 07:40] LABS: BILIRUBIN,URINE NEGATIVE (NEG); CLARITY,URINE CLEAR; COLOR,URINE YELLOW; NITRITE,URINE NEGATIVE (NEG); PROTEIN,URINE 30 mg/dL (NEG-TRACE); UROBILINOGEN,URINE 0.2 mg/dL (0.2 mg/dL)
[2020-01-13 08:03] LABS: RBC,URINE OCC /HPF (0-2); WBC,URINE 0 /HPF (0-4)
[2020-01-13 08:04] LABS: BACTERIA,URINE FEW /HPF (0-FEW); HYALINE CASTS, URINE OCCASIONAL /HPF
== END 2020-01-13 10:35 | disposition home or self-care (01) ==
LOC: 3 SO LND 07:22
PROVIDERS: ADMIT Obstetrics & Gynecology; ATTEND Obstetrics & Gynecology
DX: O62.9 Abnormality of forces of labor, unspecified (principal); O21.2 Late vomiting of pregnancy; Z3A.36 36 weeks gestation of pregnancy
CPT/HCPCS: 81001; G0378; G0379

== ENCOUNTER 2020-07-18 09:14 | Emergency (ER) | payer OTHER ==
[~2020-07-18] VITALS: Ht 167.6 cm; Wt 45.0 kg
[2020-07-18 09:49] LABS: BILIRUBIN,URINE NEGATIVE (NEG); CLARITY,URINE CLOUDY; COLOR,URINE YELLOW; NITRITE,URINE POSITIVE (NEG); PROTEIN,URINE 30 mg/dL (NEG-TRACE)
[2020-07-18 10:30] LABS: BACTERIA,URINE MANY /HPF (0-FEW); WBC,URINE TNTC /HPF (0-4)
[2020-07-18] MEDS ORDERED: LORazepam 0.5 MG TABLET PO ONE (10:45)
[2020-07-18] MEDS ORDERED: IV NORMAL SALINE 1000ML BAG 1,000 ML IV ONE (10:45)
--- NOTE | 2020-07-18 11:13 | PHYS DOC ---
Past Medical History Past Medical History: Asthma, Kidney Stone Additional Past Medical Histor: kidney stones Past Surgical History: No Surgical History Additional Past Surgical Histo: iud Smoking Status: Former Smoker Alcohol Use: None Drug Use: None General Adult EDM: Chief Complaint: PAIN CONTROL HPI: HPI: Patient is a 24-year-old previously healthy female who presents to the emergency room complaining of diffuse body aches. She states that this initially started with her knee earlier this week and has now included her entire body. She is struggling with depression and has not seen her MANAGED SERVICES SALES CONSULTANT since the delivery of her child in January. She has not had any additional viral syndrome symptoms. She denies chest pain, shortness of breath, URI symptoms, nausea, vomiting, abdominal pain. Review of Systems: Review of Systems: General: Denies fever, chills, sweats, fatigue Eyes: Denies drainage, blurred vision, eye redness HENT: Denies rhinorrhea, sore throat, earache Respiratory: Denies cough, shortness of breath, wheezing Cardiac: Denies edema, palpitations, chest pain GI: Denies abdominal pain, Nausea, vomiting MSK: Denies back pain, neck pain Skin: Denies rash, jaundice Neuro: Denies headache, dizziness Psychiatric: Denies SI/HI Heart Score: Risk Factors: Risk Factors: DM, Current or recent (<one month) smoker, HTN, HLP, family history of CAD, obesity. Risk Scores: Score 0 - 3: 2.5% MACE over next 6 weeks - Discharge Home Score 4 - 6: 20.3% MACE over next 6 weeks - Admit for Clinical Observation Score 7 - 10: 72.7% MACE over next 6 weeks - Early Invasive Strategies Current Medications: Current Medications Medications (Trade) Dose Ordered Sig/Alexandra Start Time Stop Time Status Last Admin Dose Admin Lorazepam (Ativan) 0.5 mg 1X ONCE 07/18/20 10:45 07/18/20 10:46 DC 07/18/20 11:03 0.5 MG Sodium Chloride 1,000 ml @ 1,000 mls/hr 1X ONCE 07/18/20 10:45 07/18/20 11:44 07/18/20 11:03 1,000 MLS/HR Allergies: Allergies: Allergies Coded Allergies Type Severity Reaction Last Updated Verified Penicillins Allergy Mild vomiting, 12/09/13 Yes Physical Exam: PE: General: Awake, alert, NAD. Well Nourished, well hydrated. Cooperative HEENT: Atraumatic, EOMI, PERRL, airway patent, moist oral mucosa Neck: Supple, trachea midline Respiratory: CTA bilaterally, normal effort, no wheezing/crackles CV: RRR, no murmur, cap refill <2 GI: Soft, nondistended, nontender, no masses MSK: No obvious deformities Skin: Warm, dry, intact Neuro: A&O x3, speech NL, sensory and motor grossly intact, no focal deficits Psych: tearful, depressed, not suicidal or homicidal Current Patient Data: Labs: Laboratory Tests Test 07/18/20 09:37 07/18/20 09:46 Urine Collection Type Void Urine Color Yellow Urine Clarity Cloudy Urine pH 6.0 (<5.0-8.0) Urine Specific [place] 1.020 (1.000-1.030) Urine Protein 30 mg/dL (NEG-TRACE) Urine Glucose (UA) Negative mg/dL (NEG) Urine Ketones (Stick) Trace mg/dL (NEG) Urine Blood Moderate (NEG) Urine Nitrite Positive (NEG) Urine Bilirubin Negative (NEG) Urine Urobilinogen Dipstick 1.0 mg/dL (0.2 mg/dL) Urine Leukocyte Esterase Moderate (NEG) Urine RBC 3-5 /HPF (0-2) Urine WBC Tntc /HPF (0-4) Urine Squamous Epithelial Cells Many /LPF Urine Bacteria Many /HPF (0-FEW) POC Urine HCG, Qualitative Hcg negative (Negative) Vital Signs: Vital Signs Date Time Temp Pulse Resp B/P (MAP) Pulse Ox O2 Delivery O2 Flow Rate FiO2 07/18/20 09:48 99.2 80 16 126/78 (94) 99 Room Air 99.2 EKG: EKG: [] Radiology/Procedures: Radiology/Procedures: [] Course & Med Decision Making: Course & Med Decision Making Pertinent Labs and Imaging studies reviewed. (See chart for details) Patient is a 24 year old female who presents with diffuse body aches. Patient is overall well appearing. She does not have any other symptoms. She has not joint swelling. Will give fluids and check electrolytes. Discussed following up with OB for depression. She is not suicidal or homicidal. Patient is feeling better. She has a UTI. Will treat with antibiotics. Patient's test results and vitals while in the ED were fully reviewed and discussed with the p atient. Patient is stable and at this time does not need admission to the hospital. We have discussed strict return precautions and the importance of following up with their Primary Care Physician. Patient stated understanding and was given an opportunity to ask any questions. Patient is in agreement with plan. Dragon Disclaimer: Dragon Disclaimer: This electronic medical record was generated, in whole or in part, using a voice recognition dictation system. Departure Departure Impression: Primary Impression: Myalgia Additional Impression: UTI (lower urinary tract infection) Disposition: HOME, SELF-CARE Condition: STABLE Referrals: NO PCP (PCP) Patient Instructions: Depression and Baby Blues, Urinary Tract Infection Scripts Cephalexin (KEFLEX) 500 Mg Capsule 1 CAP PO Q12HR, #20 CAP Prov: NUHA JAEGER MD 07/18/20 NUHA JAEGER MD Jul 18, 2020 11:12
[2020-07-18 11:21] LABS: CALCIUM 8.5 mg/dL (8.5-10.1); CREATININE 0.8 mg/dL (0.6-1.0); GFR 107.6; MAGNESIUM 1.9 mg/dL (1.8-2.4); POTASSIUM 3.9 mmol/L (3.5-5.1)
[2020-07-18 11:40] LABS: BASO % 1 % (0-3); EOS % 0 % (0-3); HEMATOCRIT 39.8 % (36.0-47.0); HEMOGLOBIN 13.1 g/dL (12.0-15.5); LYMPH # 1.1 x10^3/uL (1.0-4.8); LYMPH % 24 % (24-48); MEAN CORPUSCULAR HEMOGLOBIN 26 pg (25-35); MEAN CORPUSCULAR HGB CONC 33 g/dL (31-37); MEAN CORPUSCULAR VOLUME 78 fL (79-100); MONO # 0.2 x10^3/uL (0.0-1.1); MONO % 6 % (0-9); NEUT % 69 % (31-73); PLATELET COUNT 195 x10^3/uL (140-400); RED BLOOD COUNT 5.07 x10^6/uL (3.50-5.40); RED CELL DISTRIBUTION WIDTH 17.3 % (11.5-14.5); WHITE BLOOD COUNT 4.4 x10^3/uL (4.0-11.0)
[2020-07-18 12:30] VITALS: BP 108/69
[2020-07-18] MEDS ORDERED: CEPH-264 PO (12:36)
== END 2020-07-18 12:58 | disposition home or self-care (01) ==
LOC: ER 09:14
DX: N39.0 Urinary tract infection, site not specified (principal); M79.10 Myalgia, unspecified site; J45.909 Unspecified asthma, uncomplicated; Z87.891 Personal history of nicotine dependence; Z98.890 Other specified postprocedural states; Z88.0 Allergy status to penicillin; Z87.442 Personal history of urinary calculi
CPT/HCPCS: 36415; 80048; 81001; 81025; 83735; 85025; 96360; 99283; J7030

== ENCOUNTER 2020-11-21 11:32 | Emergency (ER) | payer OTHER ==
[~2020-11-21] VITALS: Ht 167.6 cm; Wt 55.0 kg
[~2020-11-21 11:32] MED LIST changes: +CEPH-264 PO
[2020-11-21] MEDS ORDERED: ONDANSETRON PF 4 MG/2 ML VIAL. IVP ONE (11:45)
[2020-11-21] MEDS ORDERED: IV NORMAL SALINE 1000ML BAG 1,000 ML IV SCH (11:45)
[2020-11-21 11:55] LABS: BILIRUBIN,URINE NEGATIVE (NEG); CLARITY,URINE CLEAR; COLOR,URINE YELLOW; NITRITE,URINE NEGATIVE (NEG); PH,URINE 5.5 (<5.0-8.0); PROTEIN,URINE NEGATIVE (NEG-TRACE); UROBILINOGEN,URINE 0.2 mg/dL (0.2 mg/dL)
[2020-11-21 12:08] LABS: BACTERIA,URINE MODERATE /HPF (0-FEW)
[2020-11-21 12:10] LABS: BASO # 0.1 x10^3/uL (0.0-0.2); BASO % 1 % (0-3); EOS % 0 % (0-3); HEMATOCRIT 38.5 % (36.0-47.0); HEMOGLOBIN 13.1 g/dL (12.0-15.5); LYMPH # 1.4 x10^3/uL (1.0-4.8); LYMPH % 17 % (24-48); MEAN CORPUSCULAR HEMOGLOBIN 28 pg (25-35); MEAN CORPUSCULAR HGB CONC 34 g/dL (31-37); MEAN CORPUSCULAR VOLUME 83 fL (79-100); MONO # 0.4 x10^3/uL (0.0-1.1); MONO % 5 % (0-9); NEUT # 6.5 x10^3/uL (1.8-7.7); NEUT % 77 % (31-73); PLATELET COUNT 243 x10^3/uL (140-400); RED BLOOD COUNT 4.67 x10^6/uL (3.50-5.40); WHITE BLOOD COUNT 8.4 x10^3/uL (4.0-11.0)
[2020-11-21 12:15] VITALS: BP 112/61
[2020-11-21] MEDS ORDERED: IV NORMAL SALINE 1000ML BAG 1,000 ML IV ONE (12:15)
[2020-11-21 12:23] LABS: CALCIUM 9.5 mg/dL (8.5-10.1); CREATININE 0.8 mg/dL (0.6-1.0); GFR 106.6; POTASSIUM 3.9 mmol/L (3.5-5.1)
--- NOTE | 2020-11-21 12:24 | PHYS DOC ---
Past Medical History Past Medical History: Asthma, Kidney Stone Additional Past Medical Histor: kidney stones Past Surgical History: No Surgical History Additional Past Surgical Histo: iud Smoking Status: Current Every Day Smoker Additional Information: "trying to quit, using vape" Alcohol Use: None Drug Use: None General Adult EDM: Chief Complaint: ABDOMINAL PAIN IN HPI: HPI: Patient is a 25 year old female who presents with left menstrual period was October 06, 2020 and for the last 2 days she has had nausea vomiting and generalized abdominal pain for the last 3 days. She states she cannot keep anything down. She states her last she had to use Zofran. She is 4 para 2. She has a appointment with Dr. Mcintosh on Sunday. Patient denies any abnormal vaginal discharge or vaginal bleeding. Patient states her generalized abdominal pain is a 5 out of 10 but is worse when she is vomiting. She has a history of vaping, asthma, kidney stone. Review of Systems: Review of Systems: Constitutional: Denies fever or chills. [] Eyes: Denies change in visual acuity. [] HENT: Denies nasal congestion or sore throat. [] Respiratory: Denies cough or shortness of breath. [] Cardiovascular: Denies chest pain or edema. [] GI: + Generalized abdominal pain, +nausea, +vomiting, denies bloody stools or diarrhea. [] : Denies dysuria. [] Musculoskeletal: Denies back pain or joint pain. [] Integument: Denies rash. [] Neurologic: Denies headache, focal weakness or sensory changes. [] Endocrine: Denies polyuria or polydipsia. [] Lymphatic: Denies swollen glands. [] Psychiatric: Denies depression or anxiety. [] Heart Score: Risk Factors: Risk Factors: DM, Current or recent (<one month) smoker, HTN, HLP, family history of CAD, obesity. Risk Scores: Score 0 - 3: 2.5% MACE over next 6 weeks - Discharge Home Score 4 - 6: 20.3% MACE over next 6 weeks - Admit for Clinical Observation Score 7 - 10: 72.7% MACE over next 6 weeks - Early Invasive Strategies Current Medications: Current Medications Medications (Trade) Dose Ordered Sig/Alexandra Start Time Stop Time Status Last Admin Dose Admin Ondansetron HCl (Zofran) 4 mg 1X ONCE 11/21/20 11:45 11/21/20 11:46 DC 11/21/20 12:09 4 MG Sodium Chloride 1,000 ml @ 1,000 mls/hr 1X ONCE 11/21/20 12:15 11/21/20 13:14 Allergies: Allergies: Allergies Coded Allergies Type Severity Reaction Last Updated Verified Penicillins Allergy Mild vomiting, 12/09/13 Yes Physical Exam: PE: Constitutional: Well developed, well nourished, no acute distress, non-toxic appearance. [] HENT: Normocephalic, atraumatic, bilateral external ears normal, oropharynx moist, no oral exudates, nose normal. [] Eyes: PERRLA, EOMI, conjunctiva normal, no discharge. [] Neck: Normal range of motion, no tenderness, supple, no stridor. [] Cardiovascular:Heart rate regular rhythm, no murmur [] Lungs & Thorax: Bilateral breath sounds clear to auscultation [] Abdomen: Bowel sounds normal, soft, no tenderness, no masses, no pulsatile masses. [] Skin: Warm, dry, no erythema, no rash. [] Back: No tenderness, no CVA tenderness. [] Extremities: No tenderness, no cyanosis, no clubbing, ROM intact, no edema. [] Neurologic: Alert and oriented X 3, normal motor function, normal sensory function, no focal deficits noted. [] Psychologic: Affect normal, judgement normal, mood normal. Normal physical exam [] Current Patient Data: Labs: Laboratory Tests Test 11/21/20 11:35 11/21/20 11:48 11/21/20 12:00 Urine Collection Type Void Urine Color Yellow Urine Clarity Clear Urine pH 5.5 (<5.0-8.0) Urine Specific [place] 1.020 (1.000-1.030) Urine Protein Negative mg/dL (NEG-TRACE) Urine Glucose (UA) Negative mg/dL (NEG) Urine Ketones (Stick) >=80 mg/dL (NEG) Urine Blood Moderate (NEG) Urine Nitrite Negative (NEG) Urine Bilirubin Negative (NEG) Urine Urobilinogen Dipstick 0.2 mg/dL (0.2 mg/dL) Urine Leukocyte Esterase Small (NEG) Urine RBC 3-5 /HPF (0-2) Urine WBC 5-10 /HPF (0-4) Urine Squamous Epithelial Cells Many /LPF Urine Bacteria Moderate /HPF (0-FEW) Urine Mucus Marked /LPF POC Urine HCG, Qualitative Hcg positive (Negative) White Blood Count 8.4 x10^3/uL (4.0-11.0) Red Blood Count 4.67 x10^6/uL (3.50-5.40) Hemoglobin 13.1 g/dL (12.0-15.5) Hematocrit 38.5 % (36.0-47.0) Mean Corpuscular Volume 83 fL (79-100) Mean Corpuscular Hemoglobin 28 pg (25-35) Mean Corpuscular Hemoglobin Concent 34 g/dL (31-37) Red Cell Distribution Width 16.0 % (11.5-14.5) H Platelet Count 243 x10^3/uL (140-400) Neutrophils (%) (Auto) 77 % (31-73) H Lymphocytes (%) (Auto) 17 % (24-48) L Monocytes (%) (Auto) 5 % (0-9) Eosinophils (%) (Auto) 0 % (0-3) Basophils (%) (Auto) 1 % (0-3) Neutrophils # (Auto) 6.5 x10^3/uL (1.8-7.7) Lymphocytes # (Auto) 1.4 x10^3/uL (1.0-4.8) Monocytes # (Auto) 0.4 x10^3/uL (0.0-1.1) Eosinophils # (Auto) 0.0 x10^3/uL (0.0-0.7) Basophils # (Auto) 0.1 x10^3/uL (0.0-0.2) Laboratory Tests 11/21/20 12:00 Vital Signs: Vital Signs Date Time Temp Pulse Resp B/P (MAP) Pulse Ox O2 Delivery O2 Flow Rate FiO2 11/21/20 11:40 98.7 54 16 126/81 (96) 100 Room Air 98.7 EKG: EKG: [] Radiology/Procedures: Radiology/Procedures: [] Impression: [facility] [address] [place], [place] [id number] IMAGING REPORT Signed PATIENT: MIGUEL ORTEGA ACCOUNT: [id number] : 1995 LOCATION: ER AGE: 25 SEX: F EXAM STATUS: REG ER ORD. PHYSICIAN: WYATT BARKSDALE APRN REASON: abd pain; N/V; No pelvic pain per pt PROCEDURE: OB <14 WKS W/TV EXAMINATION: US OB <14 WKS +TV, 11/21/2020 12:13 PM CLINICAL INDICATION: Nausea and vomiting. Abdominal pain TECHNIQUE: Grayscale, color and spectral Doppler ultrasound images of the pelvis via transabdominal and transvaginal approach. COMPARISON: None. FINDINGS: The uterus measures 9.5 x 6.0 x 5.5 cm. There is a gestational sac measuring 1.33 cm seen within the endometrial canal. This is consistent with gestational age 6 weeks 1 day. A yolk sac is visualized. There is no definite pole. There is a small subchorionic hemorrhage measuring approximately 1 x 1 cm. The right ovary is not visualized. The left ovary measures 3.0 x 1.7 x 1.4 cm. Normal left ovarian blood flow. No adnexal mass or free fluid. IMPRESSION: 1. Probable early intrauterine with gestational age 6 weeks 1 day based on gestational sac size. No pole seen at this time. 2. Small subchorionic hemorrhage. Electronically signed by: Zunilda Ruelas MD (11/21/2020 1:15 PM) [id number] DICTATED and SIGNED BY: ZUNILDA RUELAS MD DATE: 11/21/20 [id number] 0 Course & Med Decision Making: Course & Med Decision Making Pertinent Labs and Imaging studies reviewed. (See chart for details) See HPI. Alert and oriented x4. Ambulatory with a steady gait. skin pink warm and dry. Abdomen is soft and nontender. Vital signs are within normal limits. Patient is given Zofran and 2 L of normal saline. Successful PO Challenge. Patient is discharged home and to follow up with OB. [] Dru Disclaimer: Dru Disclaimer: This electronic medical record was generated, in whole or in part, using a voice recognition dictation system. Departure Departure Impression: Primary Impression: Abdominal pain in Qualified Codes: O26.891 - Other specified related conditions, first trimester; R10.9 - Unspecified abdominal pain Additional Impression: Vomiting affecting Disposition: HOME SELF CARE/HOMELESS Condition: STABLE Referrals: NO PCP (PCP) XIOMARA MCINTOSH Jr, MD Patient Instructions: ABCs of , Abdominal Pain During , Hyperemesis Gravidarum Additional Instructions: Follow-up with your OB as scheduled. Drink plenty of fluids. Try to eat very small light food. Take medication as prescribed. Scripts Ondansetron (ONDANSETRON ODT) 4 Mg Tab.rapdis 1 TAB PO PRN Q6-8HRS, #20 TAB Prov: WYATT BARKSDALE APRN 11/21/20 WYATT BARKSDALE APRN Nov 21, 2020 12:24
[2020-11-21 12:29] LABS: ALBUMIN 3.9 g/dL (3.4-5.0); TOTAL BILIRUBIN 0.4 mg/dL (0.2-1.0)
--- NOTE | 2020-11-21 13:18 | RAD ---
EXAMINATION: US OB <14 WKS +TV, 11/21/2020 12:13 PM CLINICAL INDICATION: Nausea and vomiting. Abdominal pain TECHNIQUE: Grayscale, color and spectral Doppler ultrasound images of the pelvis via transabdominal a nd transvaginal approach. COMPARISON: None. FINDINGS: The uterus measures 9.5 x 6.0 x 5.5 cm. There is a gestational sac measuring 1.33 cm seen within the endometrial canal. This is consistent with gestational age 6 weeks 1 day. A yolk sac is visualized. T here is no definite pole. There is a small subchorionic hemorrhage measuring approximately 1 x 1 cm. The right ovary is not visualized. The left ovary measures 3.0 x 1.7 x 1.4 cm. Normal left ovarian bl ood flow. No adnexal mass or free fluid. IMPRESSION: 1. Probable early intrauterine with gestational age 6 weeks 1 day based on gestational sac size. No pole seen at this time. 2. Small subchorionic hemorrhage. Electronically signed by: Zunilda Ruelas MD (11/21/2020 1:15 PM) [id number]
[2020-11-21] MEDS ORDERED: ONDA4TAB12 PO (13:23)
[2020-11-21] MEDS ORDERED: KETOROLAC 30 MG/ML VIAL. IVP ONE (14:15)
== END 2020-11-21 15:03 | disposition home or self-care (01) ==
LOC: ER 11:32
DX: O21.9 Vomiting of pregnancy, unspecified (principal); R10.84 Generalized abdominal pain; J45.909 Unspecified asthma, uncomplicated; F17.200 Nicotine dependence, unspecified, uncomplicated; Z87.442 Personal history of urinary calculi; Z98.890 Other specified postprocedural states; Z88.0 Allergy status to penicillin; Z3A.01 Less than 8 weeks gestation of pregnancy
CPT/HCPCS: 36415; 76801; 76817; 80053; 81001; 81025; 83690; 84702; 85025; 87086; 96374; 96375; 99284; J2405; J7030

== ENCOUNTER 2021-04-30 02:45 | Emergency (ER) | payer OTHER ==
[~2021-04-30] VITALS: Ht 165.1 cm; Wt 53.6 kg
[~2021-04-30 02:45] MED LIST changes: +ONDA4TAB12 PO
[2021-04-30 04:26] VITALS: BP 119/79
--- NOTE | 2021-04-30 05:19 | PHYS DOC ---
Past Medical History Past Medical History: Asthma, Kidney Stone Additional Past Medical Histor: kidney stones Past Surgical History: Other Additional Past Surgical Histo: iud Smoking Status: Current Every Day Smoker Alcohol Use: None Drug Use: None General Adult EDM: Chief Complaint: HAND PROBLEM HPI: HPI: 25-year-old female who denies any past medical history presents the ED with complaints of pain to the back of her right dominant hand after patient sustained an injury 1 day ago, pain worse over 3rd middle finger, believes it's "dislocated." Patient states she was playing with her cat when she fell out on outstretched hand. Noticed swelling to the dorsum of her hand. No prior injury. No head injury or LOC. Takes no prescribed medications. Review of Systems: Review of Systems: Constitutional: Denies fever or chills. [] Eyes: Denies change in visual acuity. [] HENT: Denies nasal congestion or sore throat. [] Respiratory: Denies cough or shortness of breath. [] Cardiovascular: Denies chest pain or edema. [] GI: Denies nausea, vomiting, Musculoskeletal: Denies back pain or joint pain. [] Integument: Denies rash or diaphoresis Neurologic: Denies headache, neck pain, focal weakness or sensory changes. [] Psychiatric: Denies depression or anxiety. [] Heart Score: C/O Chest Pain: No Risk Factors: Risk Factors: DM, Current or recent (<one month) smoker, HTN, HLP, family history of CAD, obesity. Risk Scores: Score 0 - 3: 2.5% MACE over next 6 weeks - Discharge Home Score 4 - 6: 20.3% MACE over next 6 weeks - Admit for Clinical Observation Score 7 - 10: 72.7% MACE over next 6 weeks - Early Invasive Strategies Allergies: Allergies: Allergies Coded Allergies Type Severity Reaction Last Updated Verified Penicillins Allergy Mild vomiting, 12/09/13 Yes Physical Exam: PE: Constitutional: Well developed, well nourished, no acute distress, non-toxic appearance. HENT: Normocephalic, atraumatic, Eyes: EOMI, conjunctiva normal, no discharge. Neck: Normal range of motion, supple, Cardiovascular: S1/2 present, regular rhythm Lungs & Thorax: Speaking in full sentences, bilateral equal chest rise, no tachypnea or increased work of breathing Skin: Warm, dry, no erythema, no rash. [] Extremities: swelling over distal R 3rd metacarpel with no bruising, able to flex/extend right wrist/mcp/pip/ip/dip joints- normal abduction/adduction-normal R median/ulnar/radial nerve distribution, equal radial pulses bilaterally, cap refill less than 1 second no cyanosis, no lower extremity edema Neurologic: Alert and oriented X 3, normal motor function, normal sensory function, no focal deficits noted. [] Psychologic: Affect normal, judgement normal, mood normal. [] Current Patient Data: Labs: Laboratory Tests Test 04/30/21 03:32 POC Urine HCG, Qualitative Hcg negative (Negative) Vital Signs: Vital Signs Date Time Temp Pulse Resp B/P (MAP) Pulse Ox O2 Delivery O2 Flow Rate FiO2 04/30/21 04:26 52 18 119/79 (92) 99 Room Air 04/30/21 03:30 97.4 97.4 EKG: EKG: [] Radiology/Procedures: Radiology/Procedures: [] Course & Med Decision Making: Course & Med Decision Making Pertinent Labs and Imaging studies reviewed. (See chart for details) Concern for soft tissue contusion versus swelling over dorsal hand, no obvious fracture on imaging. Hand with full range of motion, neurovascular intact. Will discharge home with strict ED return precautions were given for severe pain, decreased range of motion, rash or infection or repeat injury. Encouraged urgent outpatient follow-up with PMD and hand surgery if range of motion should become decreased within 7 days. Life-threatening processes were considered but are low suspicion at this time, given history, physical exam and ED workup. Pt was educated on all prescription medications and adverse effects. All patient's questions were answered and pt was stable at time of discharge. Life/limb-threatening differential includes but is not limited to, trauma (fracture, dislocation, laceration, compartment syndrome, tendon or ligament injury), neurovascular injury or deficitcva/tia, infection (osteomyelitis, abscess, cellulitis, septic arthritis, necrotizing fasciitis), deep vein thrombosis, renal/cardiac/liver disease, medication adverse effect, lymphedema/anasarca, vascular insufficiency or malignancy, I have spoken with the patient and/or caregivers. I explained the patient's condition, diagnoses and treatment plan based on the information available to me at this time. I have answered the patient and/or caregiver's questions and addressed any concerns. The patient and/or caregivers have a good understanding of patient's diagnosis, condition and treatment plan as can be expected at this point. Vital signs have been stable. Patient's condition is stable and appropriate for discharge from the emergency department. Patient will pursue further outpatient evaluation with primary care physician or other designated or consulting physician as outlined in the discharge instructions. The patient and/or caregivers are agreeable to this plan of care and follow-up instructions have been explained in detail. The patient and/or caregivers have received these instructions in written form and have expressed an understanding of the discharge instructions. The patient and/or caregivers are aware that any significant change of condition or worsening of symptoms should prompt immediate return to this or the closest emergency department or call to 911. Dru Disclaimer: Dru Disclaimer: This electronic medical record was generated, in whole or in part, using a voice recognition dictation system. Departure Departure Impression: Primary Impression: Contusion of hand, right Additional Impression: Right hand pain Disposition: HOME / SELF CARE / HOMELESS Condition: STABLE Referrals: NO PCP (PCP) Follow-up with your primary care physician in 24 to 48 hours OR FOLLOW UP WITH FAMILY MEDICINE: [address], [address] [place] [address] Patient Instructions: Hand Contusion, RICE - Routine Care for Injuries Additional Instructions: [facility] FOR DEFIINITIVE MANAGEMENT WITHIN THE NEXT 7 DAYS Appointments may be made with Merrick Malagon MD, Ino Presley MD, Marcos Cisneros MD or Maco Delarosa MD, by calling [phone] EMERGENCY DEPARTMENT GENERAL DISCHARGE INSTRUCTIONS Thank you for coming to [facility] Emergency Department (ED) today and trusting us with you care. We trust that you had a positive experience in our Emergency Department. If you wish to speak to the department management, you may call the Director at [phone]. YOUR FOLLOW UP INSTRUCTIONS ARE FOLLOWS: 1. Do you have a private Doctor? If you do not have a private doctor, please ask for a resource list of physicians or clinics that may be able to assist you with follow up care. 2. The Emergency Physicain has interpreted your x-rays. The X-Ray specialist will also review them. If there is a change in the findings, you will be notified in 48 hours when at all possible. 3. A lab test or culture has been done, your results will be reviewed and you will be notified if you need a change in treatment. ADDITIONAL INSTRUCTIONS AND INFORMATION: 1. Your care today has been supervised by a physician who is specially trained in emergency care. Many problems require more than one evaluation for a complete diagnosis and treatment. We recommend that you schedule your follow up appointment as recommended to ensure complete treatment of you illness or injury. If you are unable to obtain follow up care and continue to have a problem, or if your condition worsens, we recommend that you return to the ED. 2. We are not able to safely determine your condition over the phone nor are we able to give sound medical advice over the phone. For these safety reasons, if you call for medical advice we will ask you to come to the ED for further evaluation. 3. If you have any questions regarding these discharge instructions please call the ED at [phone]. SAFETY INFORMATION: In the interest of safety, wellness, and injury prevention; we encourage you to wear your sealbelt, if you smoke; quite smoking, and we encourage family to use a protective helmet for bicycling and other sporting events that present an increased risk for head injury. IF YOUR SYMPTOMS WORSEN OR NEW SYMPTOMS DEVELOP, OR YOU HAVE CONCERNS ABOUT YOUR CONDITION; OR IF YOUR CONDITION WORSENS WHILE YOU ARE WAITING FOR YOUR FOLLOW UP APPOINTMENT; EITHER CONTACT YOUR PRIMARY CARE DOCTOR, THE PHYSICIAN WHOSE NAME AND NUMBER YOU WERE GIVEN, OR RETURN TO THE ED IMMEDIATELY. KELSI TOVAR DO Apr 30, 2021 05:19
--- NOTE | 2021-04-30 08:17 | RAD ---
INDICATION: Reason: dorsal pain / Spl. Instructions: / History: COMPARISON: None. IMPRESSION: Right hand: 3 views obtained. Soft tissue swelling is seen. No definite acute fracture or dislocation. Right wrist: 3 views obtained. There are some lucent foci within the osseous structures including the lunate. Could be from causes such as cyst formation. No definite acute fracture or dislocation. Susp ected joint effusion at the wrist. Electronically signed by: River Laguerre MD (04/30/2021 8:15 AM) [id number]
== END 2021-04-30 05:37 | disposition home or self-care (01) ==
LOC: ER 02:45
DX: S60.221A Contusion of right hand, initial encounter (principal); J45.909 Unspecified asthma, uncomplicated; F17.200 Nicotine dependence, unspecified, uncomplicated; Z87.442 Personal history of urinary calculi; Z88.0 Allergy status to penicillin; X58.XXXA Exposure to other specified factors, initial encounter; Y93.89 Activity, other specified; Y92.89 Other specified places as the place of occurrence of the external cause; Y99.8 Other external cause status
CPT/HCPCS: 73110; 73130; 81025; 99284

== ENCOUNTER 2021-07-15 13:07 | Inpatient (IN) | payer OTHER ==
[~2021-07-15] VITALS: Ht 167.6 cm; Wt 50.9 kg
--- NOTE | 2021-07-15 13:20 | NUR ---
The pt is a who presents to L&D for complaints of nausea/vomiting and dx of hyperemesis. Admit vitals stable. Pt arrives via wheelchair. Complaints of nausea and dizziness at this moment. Pt oriented to call light and safety set-up. RN to notify .
[2021-07-15] MEDS ORDERED: 0.9 % SODIUM CHLORIDE 10 ML DISP.SYRIN. IV PRN (14:30)
[2021-07-15] MEDS ORDERED: IV RINGERS,LACTATED 1000ML 1,000 ML IV SCH (14:30)
[2021-07-15 14:43] VITALS: BP 114/72
[2021-07-15 14:55] LABS: BASO # 0.1 x10^3/uL (0.0-0.2); BASO % 1 % (0-3); EOS % 0 % (0-3); HEMATOCRIT 36.8 % (36.0-47.0); HEMOGLOBIN 12.5 g/dL (12.0-15.5); LYMPH # 1.6 x10^3/uL (1.0-4.8); LYMPH % 14 % (24-48); MEAN CORPUSCULAR HEMOGLOBIN 28 pg (25-35); MEAN CORPUSCULAR HGB CONC 34 g/dL (31-37); MEAN CORPUSCULAR VOLUME 82 fL (79-100); MONO # 0.5 x10^3/uL (0.0-1.1); MONO % 5 % (0-9); NEUT % 81 % (31-73); PLATELET COUNT 289 x10^3/uL (140-400); RED BLOOD COUNT 4.47 x10^6/uL (3.50-5.40); RED CELL DISTRIBUTION WIDTH 15.8 % (11.5-14.5); WHITE BLOOD COUNT 11.2 x10^3/uL (4.0-11.0)
[2021-07-15 15:10] LABS: CALCIUM 9.4 mg/dL (8.5-10.1); CREATININE 0.6 mg/dL (0.6-1.0); GFR 148.6; POTASSIUM 3.7 mmol/L (3.5-5.1)
[2021-07-15] MEDS: ONDANSETRON PF 4 MG/2 ML VIAL. IVP PRN ×2 (15:14→21:07)
--- NOTE | 2021-07-15 15:15 | PDOC1 ---
[employer] H&P Date of Admission: Date of Admission: Jul 15, 2021 at 13:07 History of Present Illness: EDC: 01/13/22 LMP: 03/10/21 25y @ 13.6 by 13wk u/s presents for NOB visit. The pt states that since the end of April she has felt bad. Initially she was using some Zofran ODT form her last (which resulted in a loss) in Nov. In Jun she presented to [facility] ER with the N/V. They d/c her on the same meds. She has not been able to keep anything down over the last 3 days. She has not had a BM over that time period either. She had bad N/V with her last and was hospitalized for 2wks. PMH: Asthma PSH: Denies Meds: PNV All: PCN OBHx: 2 x TSVD, 1 x AB SH: no tob, no EtOH FH: noncontributory Allergies: Coded Allergies: Penicillins (Verified Allergy, Mild, vomiting,, 12/09/13) pt states" I think its PCN that im allergic to" Physical Exam: Vital Signs: Vital Signs Date Time Temp Pulse Resp B/P (MAP) Pulse Ox O2 Delivery O2 Flow Rate FiO2 07/15/21 14:43 98.4 63 18 114/72 (86) 99 98.4 PE: GENERAL: No apparent distress. Alert and oriented. HEENT: Head normocephalic, atraumatic. NECK: Supple LUNGS: Clear to auscultation. HEART: RRR, S1, S2 present, pulses intact ABDOMEN: Soft, positive bowel sounds. EXTREMITIES: No cyanosis or edema. NEUROLOGIC: Normal speech, normal tone PSYCHIATRIC: Normal affect, normal mood. SKIN: No ulceration. FHR: 150s Labs: Laboratory Tests Test 07/15/21 14:00 White Blood Count 11.2 x10^3/uL (4.0-11.0) H Red Blood Count 4.47 x10^6/uL (3.50-5.40) Hemoglobin 12.5 g/dL (12.0-15.5) Hematocrit 36.8 % (36.0-47.0) Mean Corpuscular Volume 82 fL (79-100) Mean Corpuscular Hemoglobin 28 pg (25-35) Mean Corpuscular Hemoglobin Concent 34 g/dL (31-37) Red Cell Distribution Width 15.8 % (11.5-14.5) H Platelet Count 289 x10^3/uL (140-400) Neutrophils (%) (Auto) 81 % (31-73) H Lymphocytes (%) (Auto) 14 % (24-48) L Monocytes (%) (Auto) 5 % (0-9) Eosinophils (%) (Auto) 0 % (0-3) Basophils (%) (Auto) 1 % (0-3) Neutrophils # (Auto) 9.0 x10^3/uL (1.8-7.7) H Lymphocytes # (Auto) 1.6 x10^3/uL (1.0-4.8) Monocytes # (Auto) 0.5 x10^3/uL (0.0-1.1) Eosinophils # (Auto) 0.0 x10^3/uL (0.0-0.7) Basophils # (Auto) 0.1 x10^3/uL (0.0-0.2) Sodium Level 136 mmol/L (136-145) Potassium Level 3.7 mmol/L (3.5-5.1) Chloride Level 101 mmol/L (98-107) Carbon Dioxide Level 24 mmol/L (21-32) Anion Gap 11 (6-14) Blood Urea Nitrogen 7 mg/dL (7-20) Creatinine 0.6 mg/dL (0.6-1.0) Estimated GFR (Cockcroft-Gault) 148.6 BUN/Creatinine Ratio 12 (6-20) Glucose Level 67 mg/dL (70-99) L Calcium Level 9.4 mg/dL (8.5-10.1) Total Bilirubin Pending Aspartate Amino Transferase (AST) Pending Alanine Aminotransferase (ALT) Pending Alkaline Phosphatase Pending Total Protein Pending Albumin Pending Albumin/Globulin Ratio Pending Laboratory Tests 07/15/21 14:00 Laboratory Tests 07/15/21 14:00 Laboratory Tests 07/15/21 14:00 Assessment & Plan: A/P 25y @ 13.6 by 13wk u/s 1.) N/V will start IV and antiemetics prn, CBC and CMP ordered 2.) Asthma 3.) PCN All 4.) Dispo - obs GENE GALVAN MD Jul 15, 2021 15:15
[2021-07-15 15:16] LABS: ALBUMIN 3.3 g/dL (3.4-5.0); ALBUMIN/GLOBULIN RATIO 0.8 (1.0-1.7); TOTAL BILIRUBIN 0.3 mg/dL (0.2-1.0); TOTAL PROTEIN 7.7 g/dL (6.4-8.2)
[2021-07-15] MEDS ORDERED: IV DEXTROSE 5 %-0.45 % NACL 1,000 ML IV ONE (16:30)
[2021-07-15] MEDS: PROMETHAZINE 12.5 MG TABLET. PO PRN ×2 (17:17→23:58)
[2021-07-15] MEDS ORDERED: ONDANSETRON ODT 4 MG TAB.RAPDIS. PO PRN (18:00)
[2021-07-15 20:00] VITALS: BP 106/60
[2021-07-16 00:03] VITALS: BP 100/68
[2021-07-16] MEDS: ONDANSETRON PF 4 MG/2 ML VIAL. IVP PRN ×2 (03:05→17:42)
[2021-07-16 06:10] VITALS: BP 90/50
[2021-07-16 08:15] VITALS: BP 96/69
[2021-07-16] MEDS: ACETAMINOPHEN 500 MG TABLET PO PRN ×2 (08:27→15:24)
[2021-07-16] MEDS: PRENATAL MULTIVITAMIN TABLET. PO SCH (08:27)
[2021-07-16] MEDS: PROMETHAZINE 12.5 MG TABLET. PO PRN (08:27)
--- NOTE | 2021-07-16 11:39 | PDOC ---
SW[employer]MING [employer]OL INST[employer]ER PROGRESS NOTE Date of Service: DATE: 07/16/21 TIME: 11:39 Subjective: Pt feels better today. Pt able to leeanna PO this am. Objective: Vital Signs: Vital Signs Date Time Temp Pulse Resp B/P (MAP) Pulse Ox O2 Delivery O2 Flow Rate FiO2 07/15/21 14:43 98.4 63 18 114/72 (86) 99 98.4 07/15/21 16:34 Room Air Vital Signs Date Time Temp Pulse Resp B/P (MAP) Pulse Ox O2 Delivery O2 Flow Rate FiO2 07/16/21 08:15 98.4 60 16 96/69 (78) 99 Room Air 98.4 Labs: Laboratory Tests Test 07/15/21 14:00 White Blood Count 11.2 x10^3/uL (4.0-11.0) H Red Blood Count 4.47 x10^6/uL (3.50-5.40) Hemoglobin 12.5 g/dL (12.0-15.5) Hematocrit 36.8 % (36.0-47.0) Mean Corpuscular Volume 82 fL (79-100) Mean Corpuscular Hemoglobin 28 pg (25-35) Mean Corpuscular Hemoglobin Concent 34 g/dL (31-37) Red Cell Distribution Width 15.8 % (11.5-14.5) H Platelet Count 289 x10^3/uL (140-400) Neutrophils (%) (Auto) 81 % (31-73) H Lymphocytes (%) (Auto) 14 % (24-48) L Monocytes (%) (Auto) 5 % (0-9) Eosinophils (%) (Auto) 0 % (0-3) Basophils (%) (Auto) 1 % (0-3) Neutrophils # (Auto) 9.0 x10^3/uL (1.8-7.7) H Lymphocytes # (Auto) 1.6 x10^3/uL (1.0-4.8) Monocytes # (Auto) 0.5 x10^3/uL (0.0-1.1) Eosinophils # (Auto) 0.0 x10^3/uL (0.0-0.7) Basophils # (Auto) 0.1 x10^3/uL (0.0-0.2) Sodium Level 136 mmol/L (136-145) Potassium Level 3.7 mmol/L (3.5-5.1) Chloride Level 101 mmol/L (98-107) Carbon Dioxide Level 24 mmol/L (21-32) Anion Gap 11 (6-14) Blood Urea Nitrogen 7 mg/dL (7-20) Creatinine 0.6 mg/dL (0.6-1.0) Estimated GFR (Cockcroft-Gault) 148.6 BUN/Creatinine Ratio 12 (6-20) Glucose Level 67 mg/dL (70-99) L Calcium Level 9.4 mg/dL (8.5-10.1) Total Bilirubin 0.3 mg/dL (0.2-1.0) Aspartate Amino Transferase (AST) 15 U/L (15-37) Alanine Aminotransferase (ALT) 16 U/L (14-59) Alkaline Phosphatase 62 U/L (46-116) Total Protein 7.7 g/dL (6.4-8.2) Albumin 3.3 g/dL (3.4-5.0) L Albumin/Globulin Ratio 0.8 (1.0-1.7) L Laboratory Tests 07/15/21 14:00 Laboratory Tests 07/15/21 14:00 Laboratory Tests 07/15/21 14:00 Physical Exam: GENERAL: No apparent distress. Alert and oriented. HEENT: Head normocephalic, atraumatic. NECK: Supple LUNGS: Clear to auscultation. HEART: RRR, S1, S2 present, pulses intact ABDOMEN: Soft, positive bowel sounds. EXTREMITIES: No cyanosis or edema. NEUROLOGIC: Normal speech, normal tone PSYCHIATRIC: Normal affect, normal mood. SKIN: No ulceration. Assessment & Plan: A/P 25y @ 14.0 by 13wk u/s 1.) N/V will stop IVF and switch meds to PO. States that the Phenergan makes her drousy but is effective. Will order Phenergan 12.5mg q6hr sarah with Zofran prn 2.) Asthma 3.) PCN All 4.) Cont obs GENE GALVAN MD Jul 16, 2021 11:39
[2021-07-16 13:01] VITALS: BP 99/61
[2021-07-16] MEDS: PROMETHAZINE 12.5 MG TABLET. PO SCH ×2 (13:21→17:38)
[2021-07-16 14:18] LABS: BILIRUBIN,URINE NEGATIVE (NEG); CLARITY,URINE CLOUDY; COLOR,URINE YELLOW; NITRITE,URINE NEGATIVE (NEG); PH,URINE 6.5 (<5.0-8.0); PROTEIN,URINE NEGATIVE (NEG-TRACE)
[2021-07-16 14:25] LABS: BACTERIA,URINE MANY /HPF (0-FEW); RBC,URINE 0 /HPF (0-2)
[2021-07-16] MEDS: NITROFURANTOIN MONOHYD/M-CRYST 100 MG CAPSULE. PO SCH (17:42)
[2021-07-16 18:02] VITALS: BP 99/71
[2021-07-16 21:00] VITALS: BP 98/58
[2021-07-17] MEDS: PROMETHAZINE 12.5 MG TABLET. PO SCH ×2 (00:04→06:12)
[2021-07-17 06:16] VITALS: BP 96/62
[2021-07-17 08:14] VITALS: BP 103/64
[2021-07-17] MEDS: PRENATAL MULTIVITAMIN TABLET. PO SCH (08:20)
[2021-07-17] MEDS: ACETAMINOPHEN 500 MG TABLET PO PRN (08:20)
[2021-07-17] MEDS: NITROFURANTOIN MONOHYD/M-CRYST 100 MG CAPSULE. PO SCH (08:20)
[2021-07-17] MEDS ORDERED: PROM12.58 PO (11:19)
[2021-07-17] MEDS ORDERED: NITR100C62 PO (11:20)
[2021-07-17] MEDS ORDERED: ONDA4TAB7 PO (11:20)
--- NOTE | 2021-07-17 11:22 | PDOC ---
BRONC BREAKER PROGRESS NOTE Date of Service: DATE: 07/17/21 TIME: 11:22 Subjective: Pt with an episode of emesis last night. Has been able to leeanna breakfast and lunch. Feels much better. Objective: Vital Signs: Vital Signs Date Time Temp Pulse Resp B/P (MAP) Pulse Ox O2 Delivery O2 Flow Rate FiO2 07/16/21 08:15 98.4 60 16 96/69 (78) 99 Room Air 98.4 Vital Signs Date Time Temp Pulse Resp B/P (MAP) Pulse Ox O2 Delivery O2 Flow Rate FiO2 07/17/21 08:14 98.4 67 16 103/64 (77) 98 Room Air 98.4 Labs: Laboratory Tests Test 07/16/21 13:13 Urine Collection Type Unknown Urine Color Yellow Urine Clarity Cloudy Urine pH 6.5 (<5.0-8.0) Urine Specific [place] 1.010 (1.000-1.030) Urine Protein Negative mg/dL (NEG-TRACE) Urine Glucose (UA) Negative mg/dL (NEG) Urine Ketones (Stick) Negative mg/dL (NEG) Urine Blood Trace (NEG) Urine Nitrite Negative (NEG) Urine Bilirubin Negative (NEG) Urine Urobilinogen Dipstick 1.0 mg/dL (0.2 mg/dL) Urine Leukocyte Esterase Moderate (NEG) Urine RBC 0 /HPF (0-2) Urine WBC 5-10 /HPF (0-4) Urine Squamous Epithelial Cells Many /LPF Urine Bacteria Many /HPF (0-FEW) Urine Mucus Slight /LPF Physical Exam: GENERAL: No apparent distress. Alert and oriented. HEENT: Head normocephalic, atraumatic. NECK: Supple LUNGS: Clear to auscultation. HEART: RRR, S1, S2 present, pulses intact ABDOMEN: Soft, positive bowel sounds. EXTREMITIES: No cyanosis or edema. NEUROLOGIC: Normal speech, normal tone PSYCHIATRIC: Normal affect, normal mood. SKIN: No ulceration. Assessment & Plan: A/P 25y @ 14.1 by 13wk u/s 1.) N/V Leeanna PO better. On PO Phenergan (scheduled) and Zofran prn 2.) Asthma 3.) PCN All 4.) UTI on Macrobid 5.) D/c home GENE GALVAN MD Jul 17, 2021 11:22
[2021-07-17 11:45] VITALS: BP 105/63
--- NOTE | 2021-07-17 11:53 | NUR ---
Discharge Note: MIGUEL ORTEGA3 SO LND Discharge instructions and discharge home medications reviewed with Patient and a copy given. All questions have been answered and understanding verbalized. The following instructions and handouts were given: Diet - Hyperemesis Gravidarum Hyperemesis Gravidarum Urinary Tract Infection Discontinued lines and drains: 20g right wrist removed. catheter tip intact. bandage applied. Patient discharged to home with self-care via ambulation to private vehicle. Pt. walked with steady gait and states she is excited to get home and watch the [employer] game with her son and daughter.
--- NOTE | 2021-07-17 12:48 | DS ---
DATE OF DISCHARGE: 07/17/2021 ADMISSION DIAGNOSES: 1. Intrauterine at 13 weeks and 6 days by 13-week ultrasound. 2. Nausea and vomiting. 3. Asthma. 4. PENICILLIN ALLERGY. DISCHARGE DIAGNOSES: 1. Intrauterine at 14 weeks and 1 day by 13-week ultrasound. 2. Nausea and vomiting. 3. Asthma. 4. PENICILLIN ALLERGY. 5. Urinary tract infection. PROCEDURE: None. BRIEF HOSPITAL COURSE: The patient is a 25-year-old 4, para 2-0-1-2, presents to Labor and Delivery at 13 weeks and 6 days by 13-week ultrasound with nausea and vomiting. The patient was seen in the office earlier that day, reporting that she had not been able to keep anything down for 3 days. The patient stated that she had felt bad since April. Initially, she was taking some Zofran ODT for her last , which resulted in a loss, but in June, nausea and vomiting gotten worse and she presented to [facility] ER where she was given Zofran again. With the patient's current inability to tolerate p.o., she was sent to Labor and Delivery for IV fluids and management of antiemetics. The patient was reporting dysuria on day #2 so an UA was sent. The patient was started on Macrobid after the results returned. By hospital day #2, the patient was tolerating p.o. better and was switched from IV antiemetics to p.o. antiemetics. The patient did have an episode of emesis that evening, but was able to tolerate dinner as well as the following morning breakfast and lunch. The patient was subsequently discharged home. DISCHARGE INSTRUCTIONS: The patient was told not to lift anything greater than 20 pounds, have pelvic rest for 6 weeks. CALL IF: The patient was to call if she had fevers, chills, nausea, vomiting, abdominal pain or any additional questions or concerns. FOLLOWUP APPOINTMENT: The patient was to follow up in 4 weeks for her routine visit and was sent home with a prescription of Phenergan 12.5 mg, 30 pills; Zofran 4 mg, 30 pills; and Macrobid 100 mg, [address]: Carele TID: [id number] MTDD
== END 2021-07-17 11:50 | disposition home or self-care (01) | DRG 832 ==
LOC: 3 SO LND 13:07 → OBSVTOIN 14:24 → 3 SO LND 07-16 08:11
PROVIDERS: ADMIT Obstetrics & Gynecology; ATTEND Obstetrics & Gynecology
DX: O23.42 Unspecified infection of urinary tract in pregnancy, second trimester (principal); N39.0 Urinary tract infection, site not specified; O21.9 Vomiting of pregnancy, unspecified; O99.52 Diseases of the respiratory system complicating childbirth; Z3A.14 14 weeks gestation of pregnancy; Z88.0 Allergy status to penicillin; J45.909 Unspecified asthma, uncomplicated
CPT/HCPCS: 36415; 80053; 81001; 85025; 87077; 87086; 87186; G0378; G0379; J2405; J7042; Q0169

== ENCOUNTER 2021-08-23 08:08 | Emergency (ER) | payer OTHER ==
[~2021-08-23] VITALS: Ht 167.6 cm; Wt 58.5 kg
[~2021-08-23 08:08] MED LIST changes: +ONDA4TAB7 PO; +PROM12.58 PO
--- NOTE | 2021-08-23 08:32 | ED.ADGEN ---
Past Medical History Past Medical History: Asthma, Kidney Stone Additional Past Medical Histor: kidney stones Past Surgical History: Other Additional Past Surgical Histo: iud Smoking Status: Never Smoker Alcohol Use: None Drug Use: None General Adult EDM: Chief Complaint: ABDOMINAL PAIN IN HPI: HPI: Patient is a 26-year-old female who arrives ambulatory to the emergency department complaining of abdominal pain during for the past 2 days. Patient is 19 weeks and reports in addition to having abdominal cramping she has noticed blood whenever she wipes. Patient states she tried to contact her DESKTOP SUPPORT ENGINEER however he never returned her calls. Patient states she last visited with her DESKTOP SUPPORT ENGINEER on the first of this month and states there were no outstanding problems with her . Patient states in addition to having abdominal pain she has felt nauseated during this time. Despite this, she denies any fevers. She further denies any diarrhea or dysuria. She is awake, alert and nontoxic-appearing. Review of Systems: Review of Systems: Constitutional: Denies fever or chills. [] Eyes: Denies change in visual acuity. [] HENT: Denies nasal congestion or sore throat. [] Respiratory: Denies cough or shortness of breath. [] Cardiovascular: Denies chest pain or edema. [] GI: Reports nausea with abdominal cramping. Denies vomiting, bloody stools or diarrhea. [] : Reports with vaginal bleeding. Denies dysuria. [] Musculoskeletal: Denies back pain or joint pain. [] Integument: Denies rash. [] Neurologic: Denies headache, focal weakness or sensory changes. [] Endocrine: Denies polyuria or polydipsia. [] Lymphatic: Denies swollen glands. [] Psychiatric: Denies depression or anxiety. [] Current Medications: Current Medications Medications (Trade) Dose Ordered Sig/Alexandra Start Time Stop Time Status Last Admin Dose Admin Acetaminophen/ Hydrocodone Bitart (Lortab 5/325) 1 tab 1X ONCE 08/23/21 11:00 08/23/21 11:01 DC 08/23/21 11:05 1 TAB Nitrofurantoin Macrocrystals (Macrobid) 100 mg 1X ONCE 08/23/21 10:45 08/23/21 10:46 DC 08/23/21 11:05 100 MG Sodium Chloride 1,000 ml @ 1,000 mls/hr 1X ONCE 08/23/21 08:45 08/23/21 09:44 DC 08/23/21 09:26 1,000 MLS/HR Allergies: Allergies: Allergies Coded Allergies Type Severity Reaction Last Updated Verified Penicillins Adverse Reaction Mild vomiting 08/23/21 Yes Physical Exam: PE: Constitutional: Uncomfortable appearing. Well developed, well nourished, no acute distress, non-toxic appearance. [] HENT: Normocephalic, atraumatic, bilateral external ears normal, oropharynx moist, no oral exudates, nose normal. [] Eyes: PERRLA, EOMI, conjunctiva normal, no discharge. [] Neck: Normal range of motion, no tenderness, supple, no stridor. [] Cardiovascular:Heart rate regular rhythm, no murmur [] Lungs & Thorax: Bilateral breath sounds clear to auscultation [] Abdomen: Patient is gravid. Bowel sounds normal, soft, no tenderness, no masses, no pulsatile masses. [] Skin: Warm, dry, no erythema, no rash. [] Back: No tenderness, no CVA tenderness. [] Extremities: No tenderness, no cyanosis, no clubbing, ROM intact, no edema. [] Neurologic: Alert and oriented X 3, normal motor function, normal sensory function, no focal deficits noted. [] Psychologic: Affect normal, judgement normal, mood normal. [] Current Patient Data: Labs: Laboratory Tests Test 08/23/21 08:45 08/23/21 08:50 White Blood Count 8.8 x10^3/uL (4.0-11.0) Red Blood Count 3.79 x10^6/uL (3.50-5.40) Hemoglobin 10.8 g/dL (12.0-15.5) L Hematocrit 31.8 % (36.0-47.0) L Mean Corpuscular Volume 84 fL (79-100) Mean Corpuscular Hemoglobin 28 pg (25-35) Mean Corpuscular Hemoglobin Concent 34 g/dL (31-37) Red Cell Distribution Width 14.6 % (11.5-14.5) H Platelet Count 262 x10^3/uL (140-400) Neutrophils (%) (Auto) 82 % (31-73) H Lymphocytes (%) (Auto) 7 % (24-48) L Monocytes (%) (Auto) 11 % (0-9) H Eosinophils (%) (Auto) 0 % (0-3) Basophils (%) (Auto) 0 % (0-3) Neutrophils # (Auto) 7.2 x10^3/uL (1.8-7.7) Lymphocytes # (Auto) 0.6 x10^3/uL (1.0-4.8) L Monocytes # (Auto) 1.0 x10^3/uL (0.0-1.1) Eosinophils # (Auto) 0.0 x10^3/uL (0.0-0.7) Basophils # (Auto) 0.0 x10^3/uL (0.0-0.2) Sodium Level 137 mmol/L (136-145) Potassium Level 3.7 mmol/L (3.5-5.1) Chloride Level 102 mmol/L (98-107) Carbon Dioxide Level 27 mmol/L (21-32) Anion Gap 8 (6-14) Blood Urea Nitrogen 6 mg/dL (7-20) L Creatinine 0.5 mg/dL (0.6-1.0) L Estimated GFR (Cockcroft-Gault) 181.9 BUN/Creatinine Ratio 12 (6-20) Glucose Level 72 mg/dL (70-99) Calcium Level 8.5 mg/dL (8.5-10.1) Total Bilirubin 0.2 mg/dL (0.2-1.0) Aspartate Amino Transferase (AST) 23 U/L (15-37) Alanine Aminotransferase (ALT) 17 U/L (14-59) Alkaline Phosphatase 66 U/L (46-116) Total Protein 7.2 g/dL (6.4-8.2) Albumin 2.9 g/dL (3.4-5.0) L Albumin/Globulin Ratio 0.7 (1.0-1.7) L Urine Collection Type Unknown Urine Color Yellow Urine Clarity Turbid Urine pH 6.0 (<5.0-8.0) Urine Specific [place] 1.020 (1.000-1.030) Urine Protein 100 mg/dL (NEG-TRACE) Urine Glucose (UA) Negative mg/dL (NEG) Urine Ketones (Stick) 40 mg/dL (NEG) Urine Blood Large (NEG) Urine Nitrite Positive (NEG) Urine Bilirubin Negative (NEG) Urine Urobilinogen Dipstick 0.2 mg/dL (0.2 mg/dL) Urine Leukocyte Esterase Large (NEG) Urine RBC 3-5 /HPF (0-2) Urine WBC >40 /HPF (0-4) Urine Squamous Epithelial Cells Mod /LPF Urine Bacteria Moderate /HPF (0-FEW) Urine Mucus Slight /LPF Laboratory Tests 08/23/21 08:45 Laboratory Tests 08/23/21 08:45 Microbiology 08/23/21 Wet Prep - Final, Complete Microbiology 08/23/21 Wet Prep - Final, Complete Vital Signs: Vital Signs Date Time Temp Pulse Resp B/P (MAP) Pulse Ox O2 Delivery O2 Flow Rate FiO2 08/23/21 11:05 16 98 08/23/21 08:12 98.4 103 119/69 (86) Room Air 98.4 EKG: EKG: [] Heart Score: C/O Chest Pain: No Risk Factors: Risk Factors: DM, Current or recent (<one month) smoker, HTN, HLP, family history of CAD, obesity. Risk Scores: Score 0 - 3: 2.5% MACE over next 6 weeks - Discharge Home Score 4 - 6: 20.3% MACE over next 6 weeks - Admit for Clinical Observation Score 7 - 10: 72.7% MACE over next 6 weeks - Early Invasive Strategies Radiology/Procedures: Radiology/Procedures: [] Impression: [facility] [address] [place] [address] IMAGING REPORT Signed PATIENT: JORDANMIGUEL ACCOUNT: [id number] : 1995 LOCATION: ER AGE: 26 SEX: F EXAM STATUS: REG ER ORD. PHYSICIAN: BLUE ORTEGA DO REASON: pain/bleeding PROCEDURE: OB LIMITED CLINICAL HISTORY: Reason: pain/bleeding / Spl. Instructions: / History: COMPARISON: None available. TECHNIQUE: Limited transabdominal ultrasound of the uterus was performed. FINDINGS: There is a single live fetus in cephalic position. Cardiac activity is visualized and documented at a rate of 163 beats per minute. The placenta is posterior without placenta previa. The amniotic fluid is normal for gestational stage. The amniotic fluid index is 11.7 centimeters. Current measurements are: BPD - 4.61 cm = 20 weeks 0 days HC - 17.09 cm = 19 weeks 5 days AC - 14.03 cm =19 weeks 3 day FL - 2.95 cm = 19 weeks 1 days The gestational size based on todays measurements is 19 weeks 4 days. The estimated weight is 286+/- 42 gm. All measured ratios and indices are within normal limits. The estimated date of delivery is 01/13/2022. IMPRESSION: Single live intrauterine gestation in cephalic presentation with estimated gestational age of 19 weeks 4 days, with an estimated date of delivery 01/13/2022. Electronically signed by: Óscar Patel MD (08/23/2021 11:44 AM) [id number] DICTATED and SIGNED BY: ÓSCAR PATEL MD DATE: 08/23/21 [id number] Course & Med Decision Making: Course & Med Decision Making Pertinent Labs and Imaging studies reviewed. (See chart for details) [] Dragon Disclaimer: Dragon Disclaimer: This electronic medical record was generated, in whole or in part, using a voice recognition dictation system. Departure Departure Impression: Primary Impression: UTI in Additional Impression: Vaginal bleeding in patient at less than 20 weeks gestation Disposition: 01 HOME / SELF CARE / HOMELESS Condition: STABLE Referrals: NO PCP (PCP) Patient Instructions: - Urinary Tract Infection, Threatened Miscarriage Scripts Tramadol Hcl (ULTRAM) 50 Mg Tablet 50 MG PO Q6HRS PRN for PAIN, #12 TAB 0 Refills Prov: BLUE ORTEGA DO 08/23/21 Nitrofurantoin Monohyd/M-Cryst (MACROBID 100 MG CAPSULE) 100 Mg Capsule 1 CAP PO BID for 7 Days, #14 CAP 0 Refills Prov: BLUE ORTEGA DO 08/23/21 Problem Qualifiers BLUE ORTEGA DO Aug 23, 2021 08:32
[2021-08-23] MEDS ORDERED: IV NORMAL SALINE 1000ML BAG 1,000 ML IV ONE (08:45)
[2021-08-23 09:05] LABS: CALCIUM 8.5 mg/dL (8.5-10.1); CREATININE 0.5 mg/dL (0.6-1.0); GFR 181.9; POTASSIUM 3.7 mmol/L (3.5-5.1)
[2021-08-23 09:11] LABS: ALBUMIN 2.9 g/dL (3.4-5.0); ALBUMIN/GLOBULIN RATIO 0.7 (1.0-1.7); TOTAL BILIRUBIN 0.2 mg/dL (0.2-1.0); TOTAL PROTEIN 7.2 g/dL (6.4-8.2)
[2021-08-23 09:15] LABS: BASO % 0 % (0-3); EOS % 0 % (0-3); HEMATOCRIT 31.8 % (36.0-47.0); HEMOGLOBIN 10.8 g/dL (12.0-15.5); LYMPH # 0.6 x10^3/uL (1.0-4.8); LYMPH % 7 % (24-48); MEAN CORPUSCULAR HEMOGLOBIN 28 pg (25-35); MEAN CORPUSCULAR HGB CONC 34 g/dL (31-37); MEAN CORPUSCULAR VOLUME 84 fL (79-100); MONO % 11 % (0-9); NEUT # 7.2 x10^3/uL (1.8-7.7); NEUT % 82 % (31-73); PLATELET COUNT 262 x10^3/uL (140-400); RED BLOOD COUNT 3.79 x10^6/uL (3.50-5.40); RED CELL DISTRIBUTION WIDTH 14.6 % (11.5-14.5); WHITE BLOOD COUNT 8.8 x10^3/uL (4.0-11.0)
[2021-08-23 10:11] LABS: BILIRUBIN,URINE NEGATIVE (NEG); CLARITY,URINE TURBID; COLOR,URINE YELLOW; NITRITE,URINE POSITIVE (NEG); PROTEIN,URINE 100 mg/dL (NEG-TRACE); UROBILINOGEN,URINE 0.2 mg/dL (0.2 mg/dL)
[2021-08-23 10:33] LABS: BACTERIA,URINE MODERATE /HPF (0-FEW); WBC,URINE >40 /HPF (0-4)
[2021-08-23] MEDS ORDERED: NITROFURANTOIN MONOHYD/M-CRYST 100 MG CAPSULE. PO ONE (10:45)
[2021-08-23] MEDS ORDERED: HYDROcodone/APAP 5/325MG 1 TAB TABLET PO ONE (11:00)
--- NOTE | 2021-08-23 11:46 | RAD ---
CLINICAL HISTORY: Reason: pain/bleeding / Spl. Instructions: / History: COMPARISON: None available. TECHNIQUE: Limited transabdominal ultrasound of the uterus was performed. FINDINGS: There is a single live fetus in cephalic position. Cardiac activity is visualized and documented at a rate of 163 beats per minute. The placenta is posterior without placenta previa. The amniotic fluid is normal for gestational stag e. The amniotic fluid index is 11.7 centimeters. Current measurements are: BPD - 4.61 cm = 20 weeks 0 days HC - 17.09 cm = 19 weeks 5 days AC - 14.03 cm =19 weeks 3 day FL - 2.95 cm = 19 weeks 1 days The gestational size based on todays measurements is 19 weeks 4 days. The estimated weight is 286+/- 42 gm. All measured ratios and indices are within normal limits. The estimated date of delivery is 01/13/2022. IMPRESSION: Single live intrauterine gestation in cephalic presentation with estimated gestational age of 19 week s 4 days, with an estimated date of delivery 01/13/2022. Electronically signed by: Óscar Patel MD (08/23/2021 11:44 AM) [email or web address]
[2021-08-23] MEDS ORDERED: TRAM-48 PO (11:54)
[2021-08-23] MEDS ORDERED: NITR100C62 PO (11:54)
[2021-08-23 12:06] VITALS: BP 113/63
== END 2021-08-23 12:06 | disposition home or self-care (01) ==
LOC: ER 08:08
DX: O23.42 Unspecified infection of urinary tract in pregnancy, second trimester (principal); N39.0 Urinary tract infection, site not specified; O20.9 Hemorrhage in early pregnancy, unspecified; O99.512 Diseases of the respiratory system complicating pregnancy, second trimester; J45.909 Unspecified asthma, uncomplicated; Z3A.19 19 weeks gestation of pregnancy; Z88.0 Allergy status to penicillin
CPT/HCPCS: 36415; 76815; 80053; 81001; 85025; 86900; 86901; 87086; 87491; 87591; 96360; 99284; J7030; Q0111; 87077; 87186

== ENCOUNTER 2021-08-30 10:57 | Observation (INO) | payer OTHER ==
[~2021-08-30 10:57] MED LIST changes: +TRAM-48 PO
[2021-08-30] MEDS ORDERED: IV RINGERS,LACTATED 1000ML 1,000 ML IV PRN (12:30)
[2021-08-30 12:38] LABS: BILIRUBIN,URINE NEGATIVE (NEG); CLARITY,URINE CLOUDY; COLOR,URINE YELLOW; NITRITE,URINE POSITIVE (NEG); PROTEIN,URINE NEGATIVE (NEG-TRACE)
[2021-08-30 12:47] LABS: BACTERIA,URINE MANY /HPF (0-FEW); RBC,URINE 0 /HPF (0-2)
--- NOTE | 2021-08-30 13:06 | RAD ---
EXAM: OB ULTRASOUND, > 14 WEEKS HISTORY: Cramping. Cervical length assessment. COMPARISON: 08/23/2021 TECHNIQUE: Multiple grayscale images, color Doppler, and M-mode images of the uterus are obtained. FINDINGS: There is a single intrauterine gestation in cephalic presentation. The placenta is grade 1 and supervisor newspaper deliveries ior in location without evidence of placenta previa. The amount of amniotic fluid appears grossly nor mal. The cervical length is 4.1 cm on transvaginal images. Biometrical data: BPD = 5.08 cm for 21 weeks 3 days. HC = 18.11 cm for 20 weeks 4 days. AC = 16.04 cm for 21 weeks 1 days. FL = 3.42 cm for 20 weeks 5 days. HC/AC ratio = 1.13. Overall, the estimated sonographic gestational age is 21 weeks and 0 days for an estimated date of de livery of 01/10/2022. The estimated date of delivery provided by the last menstrual period is 01/13/2022 . Estimated weight is 388 grams. A 4 chamber heart is identified with positive cardiac activity. The estimated heart rate is 139 beats per minute. Bilateral upper and lower extremities are identified. There is a three-vessel cord with cord insertion visualized. stomach and urinary bladder are identified. Both kidneys are seen. The spine and brain are unremarkable. No obvious anatomic abnormalities are identified. The maternal adnexal regions are unremarkable. IMPRESSION: 1. Single intrauterine fetus with normal heart rate and gestational age based on ultrasound measureme nts of 21 weeks and 0 days. 2. Normal cervical length of 4.1 cm. 3. Unremarkable anatomy survey. Electronically signed by: Catalina Lorenzo MD (08/30/2021 1:04 PM) [id number]
[2021-08-30 13:10] LABS: BASO % 0 % (0-3); EOS % 0 % (0-3); HEMATOCRIT 31.3 % (36.0-47.0); HEMOGLOBIN 10.5 g/dL (12.0-15.5); LYMPH # 1.6 x10^3/uL (1.0-4.8); LYMPH % 25 % (24-48); MEAN CORPUSCULAR HEMOGLOBIN 28 pg (25-35); MEAN CORPUSCULAR HGB CONC 33 g/dL (31-37); MEAN CORPUSCULAR VOLUME 83 fL (79-100); MONO # 0.5 x10^3/uL (0.0-1.1); MONO % 7 % (0-9); NEUT # 4.3 x10^3/uL (1.8-7.7); NEUT % 68 % (31-73); PLATELET COUNT 240 x10^3/uL (140-400); RED BLOOD COUNT 3.76 x10^6/uL (3.50-5.40); RED CELL DISTRIBUTION WIDTH 14.5 % (11.5-14.5); WHITE BLOOD COUNT 6.3 x10^3/uL (4.0-11.0)
[2021-08-30] MEDS ORDERED: ACETAMINOPHEN 325 MG TABLET. PO PRN (13:15)
[2021-08-30] MEDS ORDERED: ONDANSETRON PF 4 MG/2 ML VIAL. IVP PRN (13:15)
[2021-08-30 13:23] LABS: CALCIUM 8.5 mg/dL (8.5-10.1); CREATININE 0.5 mg/dL (0.6-1.0); GFR 181.9; POTASSIUM 3.9 mmol/L (3.5-5.1)
[2021-08-30 13:28] LABS: ALBUMIN 2.8 g/dL (3.4-5.0); ALBUMIN/GLOBULIN RATIO 0.7 (1.0-1.7); TOTAL BILIRUBIN 0.3 mg/dL (0.2-1.0); TOTAL PROTEIN 6.7 g/dL (6.4-8.2)
== END 2021-08-30 16:17 | disposition home or self-care (01) ==
LOC: 3 SO LND 10:57
PROVIDERS: ADMIT Obstetrics & Gynecology; ATTEND Obstetrics & Gynecology
DX: O62.9 Abnormality of forces of labor, unspecified (principal); O26.892 Other specified pregnancy related conditions, second trimester; R10.9 Unspecified abdominal pain; R11.0 Nausea; R51.9 Headache, unspecified; R55 Syncope and collapse; Z3A.20 20 weeks gestation of pregnancy
CPT/HCPCS: 36415; 59025; 76805; 76817; 80053; 81001; 83690; 85025; 87077; 87086; 96361; 96374; G0378; G0379; J2405; J7120

== ENCOUNTER 2021-10-04 13:50 | Observation (INO) | payer OTHER ==
[~2021-10-04] VITALS: Ht 167.6 cm; Wt 60.9 kg
[2021-10-04 14:33] LABS: BILIRUBIN,URINE NEGATIVE (NEG); CLARITY,URINE TURBID; COLOR,URINE AMBER; NITRITE,URINE NEGATIVE (NEG); PROTEIN,URINE 30 mg/dL (NEG-TRACE)
[2021-10-04 14:53] LABS: BACTERIA,URINE MODERATE /HPF (0-FEW); WBC,URINE TNTC /HPF (0-4)
[2021-10-04] MEDS: IV RINGERS,LACTATED 1000ML 1,000 ML IV PRN ×2 (16:41→19:23)
[2021-10-04] MEDS: ACETAMINOPHEN 325 MG TABLET. PO PRN (16:41)
[2021-10-04 17:18] LABS: BASO % 0 % (0-3); EOS % 0 % (0-3); HEMATOCRIT 25.4 % (36.0-47.0); HEMOGLOBIN 8.3 g/dL (12.0-15.5); LYMPH # 1.7 x10^3/uL (1.0-4.8); LYMPH % 10 % (24-48); MEAN CORPUSCULAR HEMOGLOBIN 27 pg (25-35); MEAN CORPUSCULAR HGB CONC 33 g/dL (31-37); MEAN CORPUSCULAR VOLUME 81 fL (79-100); MONO # 2.3 x10^3/uL (0.0-1.1); MONO % 13 % (0-9); NEUT # 13.4 x10^3/uL (1.8-7.7); NEUT % 77 % (31-73); PLATELET COUNT 397 x10^3/uL (140-400); RED BLOOD COUNT 3.12 x10^6/uL (3.50-5.40); RED CELL DISTRIBUTION WIDTH 13.8 % (11.5-14.5); WHITE BLOOD COUNT 17.5 x10^3/uL (4.0-11.0)
--- NOTE | 2021-10-04 17:39 | PDOC1 ---
DIRECTOR EMERGENCY DEPARTMENT H&P Date of Admission: Date of Admission: Oct 04, 2021 at 13:50 History of Present Illness: EDC: 01/14/22 LMP: 03/10/21 26y @ 25.3 by 13wk u/s over the last couple of wks the pt has had lower abd pain. She feels that it has been getting worse. Last night she was experiencing f/c too. PMH: Asthma PSH: Denies Meds: PNV, Zofran All: PCN OBHx: TSVD x 2, SAB x 1 SH: no tob, no EtOH FH: Ischemic stroke Medications: Meds: Current Medications Medications (Trade) Dose Ordered Sig/Alexandra Route PRN Reason Start Time Stop Time Status Last Admin Dose Admin Ringer's Solution 1,000 ml @ 125 mls/hr Q8H PRN IV PER PROTOCOL 10/04/21 14:15 10/04/21 16:41 Acetaminophen (Tylenol) 650 mg PRN Q6HRS PRN PO PAIN, TEMP > 100.5'F 10/04/21 14:15 10/04/21 16:41 Allergies: Coded Allergies: Penicillins (Verified Allergy, Mild, vomiting, 10/04/21) pt states" I think its PCN that im allergic to" Physical Exam: PE: GENERAL: No apparent distress. Alert and oriented. HEENT: Head normocephalic, atraumatic. NECK: Supple LUNGS: Clear to auscultation. HEART: RRR, S1, S2 present, pulses intact ABDOMEN: Soft, positive bowel sounds. EXTREMITIES: No cyanosis or edema. NEUROLOGIC: Normal speech, normal tone PSYCHIATRIC: Normal affect, normal mood. SKIN: No ulceration. FHT: 150s +10x10 acels/no decels/mLTV [place]: quiet Labs: Laboratory Tests Test 10/04/21 14:15 10/04/21 15:45 10/04/21 16:30 Urine Collection Type Unknown Urine Color Angelika Urine Clarity Turbid Urine pH 6.0 (<5.0-8.0) Urine Specific [place] 1.015 (1.000-1.030) Urine Protein 30 mg/dL (NEG-TRACE) Urine Glucose (UA) Negative mg/dL (NEG) Urine Ketones (Stick) >=80 mg/dL (NEG) Urine Blood Moderate (NEG) Urine Nitrite Negative (NEG) Urine Bilirubin Negative (NEG) Urine Urobilinogen Dipstick 1.0 mg/dL (0.2 mg/dL) Urine Leukocyte Esterase Large (NEG) Urine RBC 11-20 /HPF (0-2) Urine WBC Tntc /HPF (0-4) Urine Squamous Epithelial Cells Occ /LPF Urine Bacteria Moderate /HPF (0-FEW) SARS-CoV-2 Antigen (Rapid) Negative (NEGATIVE) White Blood Count 17.5 x10^3/uL (4.0-11.0) H Red Blood Count 3.12 x10^6/uL (3.50-5.40) L Hemoglobin 8.3 g/dL (12.0-15.5) L Hematocrit 25.4 % (36.0-47.0) L Mean Corpuscular Volume 81 fL (79-100) Mean Corpuscular Hemoglobin 27 pg (25-35) Mean Corpuscular Hemoglobin Concent 33 g/dL (31-37) Red Cell Distribution Width 13.8 % (11.5-14.5) Platelet Count 397 x10^3/uL (140-400) Neutrophils (%) (Auto) 77 % (31-73) H Lymphocytes (%) (Auto) 10 % (24-48) L Monocytes (%) (Auto) 13 % (0-9) H Eosinophils (%) (Auto) 0 % (0-3) Basophils (%) (Auto) 0 % (0-3) Neutrophils # (Auto) 13.4 x10^3/uL (1.8-7.7) H Lymphocytes # (Auto) 1.7 x10^3/uL (1.0-4.8) Monocytes # (Auto) 2.3 x10^3/uL (0.0-1.1) H Eosinophils # (Auto) 0.0 x10^3/uL (0.0-0.7) Basophils # (Auto) 0.0 x10^3/uL (0.0-0.2) Laboratory Tests 10/04/21 16:30 Laboratory Tests 10/04/21 16:30 Assessment & Plan: A/P 26y @ 25.3 by 13wk u/s 1.) Pyelonephritis vs complicated cystitis WBC 17.5 with left shift. AF. Will start Rocpehin 2.) Anemia Hgb 8.3, will start Fe 3.) Asthma 4.) PCN All 5.) Waiting GTT to get OB labs 6.) Will place on obs GENE GALVAN MD Oct 04, 2021 17:39
[2021-10-04] MEDS ORDERED: cefTRIAXone IV Push 1 GM VIAL. IVP SCH (18:00)
[2021-10-04] MEDS: AZTREONAM IV Push 1 GM VIAL. IVP SCH (22:22)
[2021-10-05] MEDS: IV RINGERS,LACTATED 1000ML 1,000 ML IV PRN ×2 (04:15→22:01)
[2021-10-05] MEDS: AZTREONAM IV Push 1 GM VIAL. IVP SCH ×3 (05:50→22:01)
[2021-10-05] MEDS: ACETAMINOPHEN 325 MG TABLET. PO PRN ×2 (05:54→18:12)
[2021-10-05 08:14] LABS: BASO % 0 % (0-3); EOS % 0 % (0-3); HEMATOCRIT 26.3 % (36.0-47.0); HEMOGLOBIN 8.6 g/dL (12.0-15.5); LYMPH # 1.1 x10^3/uL (1.0-4.8); LYMPH % 9 % (24-48); MEAN CORPUSCULAR HEMOGLOBIN 27 pg (25-35); MEAN CORPUSCULAR HGB CONC 33 g/dL (31-37); MEAN CORPUSCULAR VOLUME 83 fL (79-100); MONO # 1.4 x10^3/uL (0.0-1.1); MONO % 11 % (0-9); NEUT # 10.1 x10^3/uL (1.8-7.7); NEUT % 80 % (31-73); PLATELET COUNT 378 x10^3/uL (140-400); RED BLOOD COUNT 3.19 x10^6/uL (3.50-5.40); RED CELL DISTRIBUTION WIDTH 13.9 % (11.5-14.5); WHITE BLOOD COUNT 12.7 x10^3/uL (4.0-11.0)
--- NOTE | 2021-10-05 09:25 | PDOC ---
BLOCKMAN PROGRESS NOTE Date of Service: DATE: 10/05/21 TIME: 09:24 Subjective: Pt feels better. Does report chills. Objective: Labs: Laboratory Tests Test 10/04/21 14:15 10/04/21 15:45 10/04/21 16:30 10/05/21 07:45 Urine Collection Type Unknown Urine Color Angelika Urine Clarity Turbid Urine pH 6.0 (<5.0-8.0) Urine Specific [place] 1.015 (1.000-1.030) Urine Protein 30 mg/dL (NEG-TRACE) Urine Glucose (UA) Negative mg/dL (NEG) Urine Ketones (Stick) >=80 mg/dL (NEG) Urine Blood Moderate (NEG) Urine Nitrite Negative (NEG) Urine Bilirubin Negative (NEG) Urine Urobilinogen Dipstick 1.0 mg/dL (0.2 mg/dL) Urine Leukocyte Esterase Large (NEG) Urine RBC 11-20 /HPF (0-2) Urine WBC Tntc /HPF (0-4) Urine Squamous Epithelial Cells Occ /LPF Urine Bacteria Moderate /HPF (0-FEW) SARS-CoV-2 Antigen (Rapid) Negative (NEGATIVE) White Blood Count 17.5 x10^3/uL (4.0-11.0) H 12.7 x10^3/uL (4.0-11.0) H Red Blood Count 3.12 x10^6/uL (3.50-5.40) L 3.19 x10^6/uL (3.50-5.40) L Hemoglobin 8.3 g/dL (12.0-15.5) L 8.6 g/dL (12.0-15.5) L Hematocrit 25.4 % (36.0-47.0) L 26.3 % (36.0-47.0) L Mean Corpuscular Volume 81 fL (79-100) 83 fL (79-100) Mean Corpuscular Hemoglobin 27 pg (25-35) 27 pg (25-35) Mean Corpuscular Hemoglobin Concent 33 g/dL (31-37) 33 g/dL (31-37) Red Cell Distribution Width 13.8 % (11.5-14.5) 13.9 % (11.5-14.5) Platelet Count 397 x10^3/uL (140-400) 378 x10^3/uL (140-400) Neutrophils (%) (Auto) 77 % (31-73) H 80 % (31-73) H Lymphocytes (%) (Auto) 10 % (24-48) L 9 % (24-48) L Monocytes (%) (Auto) 13 % (0-9) H 11 % (0-9) H Eosinophils (%) (Auto) 0 % (0-3) 0 % (0-3) Basophils (%) (Auto) 0 % (0-3) 0 % (0-3) Neutrophils # (Auto) 13.4 x10^3/uL (1.8-7.7) H 10.1 x10^3/uL (1.8-7.7) H Lymphocytes # (Auto) 1.7 x10^3/uL (1.0-4.8) 1.1 x10^3/uL (1.0-4.8) Monocytes # (Auto) 2.3 x10^3/uL (0.0-1.1) H 1.4 x10^3/uL (0.0-1.1) H Eosinophils # (Auto) 0.0 x10^3/uL (0.0-0.7) 0.0 x10^3/uL (0.0-0.7) Basophils # (Auto) 0.0 x10^3/uL (0.0-0.2) 0.0 x10^3/uL (0.0-0.2) Laboratory Tests 10/04/21 16:30 10/05/21 07:45 Laboratory Tests 10/05/21 07:45 Physical Exam: GENERAL: No apparent distress. Alert and oriented. HEENT: Head normocephalic, atraumatic. NECK: Supple LUNGS: Clear to auscultation. HEART: RRR, S1, S2 present, pulses intact ABDOMEN: Soft, positive bowel sounds. EXTREMITIES: No cyanosis or edema. NEUROLOGIC: Normal speech, normal tone PSYCHIATRIC: Normal affect, normal mood. SKIN: No ulceration. FHT: 150s 10x10 acels/no decels/mLTV [place]: quiet Assessment & Plan: A/P 26y @ 25.4 by 13wk u/s 1.) Pyelonephritis vs complicated cystitis WBC 17.5 -> 12.7. AF. Pharm wanted alternative to Rocpehin since PCN All. Given 2 doses of Aztreonam 1 gm 2.) Anemia Hgb 8.3, on Fe BID 3.) Asthma 4.) PCN All 5.) Waiting GTT to get OB labs 6.) Cont care GENE GALVAN MD Oct 05, 2021 09:25
[2021-10-05] MEDS ORDERED: FERROUS SULFATE 325 MG TABLET. PO SCH (09:30)
[2021-10-05] MEDS: ONDANSETRON ODT 4 MG TAB.RAPDIS. PO PRN (13:05)
[2021-10-05] MEDS ORDERED: FAMOTIDINE 20 MG TABLET. PO SCH (15:45)
[2021-10-06] MEDS: IV RINGERS,LACTATED 1000ML 1,000 ML IV PRN (06:05)
[2021-10-06] MEDS: AZTREONAM IV Push 1 GM VIAL. IVP SCH (06:06)
[2021-10-06] MEDS: ONDANSETRON ODT 4 MG TAB.RAPDIS. PO PRN (08:30)
[2021-10-06] MEDS: ACETAMINOPHEN 325 MG TABLET. PO PRN (08:31)
[2021-10-06] MEDS ORDERED: PRENATAL MULTIVITAMIN TABLET. PO SCH (09:00)
[2021-10-06 10:12] LABS: BASO % 0 % (0-3); EOS % 0 % (0-3); HEMATOCRIT 24.3 % (36.0-47.0); LYMPH # 1.1 x10^3/uL (1.0-4.8); LYMPH % 11 % (24-48); MEAN CORPUSCULAR HEMOGLOBIN 27 pg (25-35); MEAN CORPUSCULAR HGB CONC 33 g/dL (31-37); MEAN CORPUSCULAR VOLUME 82 fL (79-100); MONO # 0.7 x10^3/uL (0.0-1.1); MONO % 7 % (0-9); NEUT # 8.1 x10^3/uL (1.8-7.7); NEUT % 81 % (31-73); PLATELET COUNT 368 x10^3/uL (140-400); RED BLOOD COUNT 2.95 x10^6/uL (3.50-5.40); RED CELL DISTRIBUTION WIDTH 13.7 % (11.5-14.5)
[2021-10-06] MEDS ORDERED: SMZ/TMP 800/160MG TABLET. PO SCH (10:30)
[2021-10-06] MEDS ORDERED: SULF1TAB24 PO (11:44)
[2021-10-06] MEDS ORDERED: FERR325T14 PO (11:44)
--- NOTE | 2021-10-06 16:58 | PDOC ---
[employer] FEEDER PROGRESS NOTE Date of Service: DATE: 10/06/21 TIME: 16:58 Subjective: Pt feels better. Does report chills. Objective: Labs: Laboratory Tests Test 10/06/21 09:50 White Blood Count 10.0 x10^3/uL (4.0-11.0) Red Blood Count 2.95 x10^6/uL (3.50-5.40) L Hemoglobin 8.0 g/dL (12.0-15.5) L Hematocrit 24.3 % (36.0-47.0) L Mean Corpuscular Volume 82 fL (79-100) Mean Corpuscular Hemoglobin 27 pg (25-35) Mean Corpuscular Hemoglobin Concent 33 g/dL (31-37) Red Cell Distribution Width 13.7 % (11.5-14.5) Platelet Count 368 x10^3/uL (140-400) Neutrophils (%) (Auto) 81 % (31-73) H Lymphocytes (%) (Auto) 11 % (24-48) L Monocytes (%) (Auto) 7 % (0-9) Eosinophils (%) (Auto) 0 % (0-3) Basophils (%) (Auto) 0 % (0-3) Neutrophils # (Auto) 8.1 x10^3/uL (1.8-7.7) H Lymphocytes # (Auto) 1.1 x10^3/uL (1.0-4.8) Monocytes # (Auto) 0.7 x10^3/uL (0.0-1.1) Eosinophils # (Auto) 0.0 x10^3/uL (0.0-0.7) Basophils # (Auto) 0.0 x10^3/uL (0.0-0.2) Laboratory Tests 10/06/21 09:50 Laboratory Tests 10/06/21 09:50 Physical Exam: GENERAL: No apparent distress. Alert and oriented. HEENT: Head normocephalic, atraumatic. NECK: Supple LUNGS: Clear to auscultation. HEART: RRR, S1, S2 present, pulses intact ABDOMEN: Soft, positive bowel sounds. EXTREMITIES: No cyanosis or edema. NEUROLOGIC: Normal speech, normal tone PSYCHIATRIC: Normal affect, normal mood. SKIN: No ulceration. FHT: 150s 10x10 acels/no decels/mLTV [place]: quiet Assessment & Plan: A/P 26y @ 25.4 by 13wk u/s 1.) Pyelonephritis vs complicated cystitis WBC 17.5 -> 12.7. AF. On Aztreonam due to PCN All. Since allergic to beta lactums and in 2nd trimester will switch to PO Bactrim 2.) Anemia Hgb 8.3, on Fe BID 3.) Asthma 4.) PCN All 5.) Waiting GTT to get OB labs 6.) D/c later today GENE GALVAN MD Oct 06, 2021 16:58
== END 2021-10-06 12:45 | disposition home or self-care (01) ==
LOC: 3 SO LND 13:50
PROVIDERS: ADMIT Obstetrics & Gynecology; ATTEND Obstetrics & Gynecology
DX: O26.892 Other specified pregnancy related conditions, second trimester (principal); Z20.822 Contact with and (suspected) exposure to COVID-19; R10.30 Lower abdominal pain, unspecified; O99.52 Diseases of the respiratory system complicating childbirth; J45.909 Unspecified asthma, uncomplicated; O99.012 Anemia complicating pregnancy, second trimester; D64.9 Anemia, unspecified; Z3A.25 25 weeks gestation of pregnancy
CPT/HCPCS: 36415; 81001; 85025; 87077; 87086; 87186; 87426; 96361; 96374; 96376; G0378; G0379; J3490; J7120

== ENCOUNTER → 2021-10-10 | Outpatient (CLI) | payer OTHER ==
[~2021-10-10] MED LIST changes: +FERR325T14 PO
[2021-10-10 11:14] LABS: HEMOGLOBIN 9.7 g/dL (12.0-15.5); RED BLOOD COUNT 3.64 x10^6/uL (3.50-5.40); RED CELL DISTRIBUTION WIDTH 13.9 % (11.5-14.5); WHITE BLOOD COUNT 8.7 x10^3/uL (4.0-11.0)
[2021-10-11 14:10] LABS: RUBELLA IGG ANTIBODY 3.43 index (Immune >0.99)
== END ==
LOC: LAB 10:44
PROVIDERS: ATTEND Obstetrics & Gynecology
DX: O09.72 Supervision of high risk pregnancy due to social problems, second trimester (principal)
CPT/HCPCS: 36415; 85027; 85660; 86592; 86703; 86762; 86787; 86803; 86850; 86900; 86901; 87340

== ENCOUNTER 2021-11-20 06:41 | Observation (INO) | payer OTHER ==
[2021-11-20] MEDS ORDERED: IV RINGERS,LACTATED 1000ML 1,000 ML IV PRN (06:45)
[2021-11-20 07:09] LABS: BILIRUBIN,URINE NEGATIVE (NEG); CLARITY,URINE CLEAR; COLOR,URINE YELLOW; NITRITE,URINE NEGATIVE (NEG); PH,URINE 6.5 (<5.0-8.0); PROTEIN,URINE NEGATIVE (NEG-TRACE)
[2021-11-20 07:26] LABS: BACTERIA,URINE FEW /HPF (0-FEW); RBC,URINE 0 /HPF (0-2); WBC,URINE OCC /HPF (0-4)
[2021-11-20] MEDS ORDERED: hydrOXYzine 25 MG TABLET PO PRN (08:15)
[2021-11-20] MEDS ORDERED: ACETAMINOPHEN 325 MG TABLET. PO PRN (08:15)
[2021-11-20] MEDS ORDERED: DOCUSATE SODIUM 283 MG/5 ML ENEMA. PR ONE (08:15)
== END 2021-11-20 12:10 | disposition home or self-care (01) ==
LOC: 3 SO LND 06:41
PROVIDERS: ADMIT Obstetrics & Gynecology; ATTEND Obstetrics & Gynecology
DX: O62.9 Abnormality of forces of labor, unspecified (principal); O26.853 Spotting complicating pregnancy, third trimester; O26.893 Other specified pregnancy related conditions, third trimester; R10.30 Lower abdominal pain, unspecified; Z3A.32 32 weeks gestation of pregnancy
CPT/HCPCS: 59025; 81001; 87086; G0378; G0379

== ENCOUNTER 2021-12-26 20:48 | Observation (INO) | payer OTHER ==
[2021-12-26] MEDS ORDERED: IV RINGERS,LACTATED 1000ML 1,000 ML IV SCH (21:30)
[2021-12-26 21:36] LABS: BILIRUBIN,URINE NEGATIVE (NEG); CLARITY,URINE CLEAR; COLOR,URINE STRAW; NITRITE,URINE NEGATIVE (NEG); PROTEIN,URINE NEGATIVE (NEG-TRACE); UROBILINOGEN,URINE 0.2 mg/dL (0.2 mg/dL)
[2021-12-26 21:40] LABS: BACTERIA,URINE FEW /HPF (0-FEW); RBC,URINE RARE /HPF (0-2); TRICHOMONAS,URINE PRESENT
[2021-12-26 21:42] LABS: AMPHETAMINE/METHAMPHETAMINE NEG (NEG); BARBITURATES NEG (NEG); BENZODIAZEPINES NEG (NEG); CANNABINOIDS NEG (NEG); COCAINE NEG (NEG); METHADONE NEG (NEG); OPIATES NEG (NEG); PHENCYCLIDINE NEG (NEG)
== END 2021-12-26 22:30 | disposition home or self-care (01) ==
LOC: 3 SO LND 20:48
PROVIDERS: ADMIT Obstetrics & Gynecology; ATTEND Obstetrics & Gynecology
DX: O46.93 Antepartum hemorrhage, unspecified, third trimester (principal); O62.9 Abnormality of forces of labor, unspecified; Z3A.37 37 weeks gestation of pregnancy; Z79.899 Other long term (current) drug therapy
CPT/HCPCS: 59025; 80307; 81001; 87086; G0378; G0379

== ENCOUNTER 2021-12-31 22:28 | Observation (INO) | payer OTHER ==
[~2021-12-31] VITALS: Ht 167.6 cm; Wt 66.2 kg
[2021-12-31 22:59] LABS: BILIRUBIN,URINE NEGATIVE (NEG); CLARITY,URINE HAZY; COLOR,URINE STRAW; NITRITE,URINE NEGATIVE (NEG); PROTEIN,URINE NEGATIVE (NEG-TRACE); UROBILINOGEN,URINE 0.2 mg/dL (0.2 mg/dL)
[2021-12-31 23:00] LABS: BACTERIA,URINE MANY /HPF (0-FEW); WBC,URINE TNTC /HPF (0-4)
[2021-12-31 23:13] LABS: AMPHETAMINE/METHAMPHETAMINE NEG (NEG); BARBITURATES NEG (NEG); BENZODIAZEPINES NEG (NEG); CANNABINOIDS NEG (NEG); COCAINE NEG (NEG); METHADONE NEG (NEG); OPIATES NEG (NEG); PHENCYCLIDINE NEG (NEG)
[2022-01-01] MEDS: IV RINGERS,LACTATED 1000ML 1,000 ML IV SCH ×2 (02:05→03:28)
[2022-01-01] MEDS ORDERED: BUTORPHANOL 2 MG/ML VIAL. IVP PRN ×2 (02:15)
[2022-01-01] MEDS ORDERED: OXYTOCIN 30 UNIT/500 ML PREMIX 500 ML IV PRN ×2 (02:15)
[2022-01-01] MEDS ORDERED: TERBUTALINE 1 MG/ML VIAL. SQ PRN (02:15)
[2022-01-01] MEDS ORDERED: ACETAMINOPHEN 325 MG TABLET. PO PRN (02:15)
[2022-01-01] MEDS ORDERED: 0.9 % SODIUM CHLORIDE 10 ML DISP.SYRIN. IV PRN (02:15)
[2022-01-01] MEDS ORDERED: LIDOCAINE 1% PF 30 ML VIAL. INJ PRN (02:15)
[2022-01-01] MEDS ORDERED: IV RINGERS,LACTATED 1000ML 1,000 ML IV SCH (02:15)
[2022-01-01 02:40] LABS: BASO % 1 % (0-3); EOS # 0.1 x10^3/uL (0.0-0.7); EOS % 1 % (0-3); HEMATOCRIT 27.5 % (36.0-47.0); HEMOGLOBIN 8.7 g/dL (12.0-15.5); LYMPH # 2.1 x10^3/uL (1.0-4.8); LYMPH % 33 % (24-48); MEAN CORPUSCULAR HEMOGLOBIN 23 pg (25-35); MEAN CORPUSCULAR HGB CONC 32 g/dL (31-37); MEAN CORPUSCULAR VOLUME 73 fL (79-100); MONO # 0.5 x10^3/uL (0.0-1.1); MONO % 8 % (0-9); NEUT # 3.6 x10^3/uL (1.8-7.7); NEUT % 57 % (31-73); PLATELET COUNT 251 x10^3/uL (140-400); RED BLOOD COUNT 3.76 x10^6/uL (3.50-5.40); RED CELL DISTRIBUTION WIDTH 16.5 % (11.5-14.5); WHITE BLOOD COUNT 6.3 x10^3/uL (4.0-11.0)
--- NOTE | 2022-01-01 07:14 | NUR ---
Hematology called with antibody screenings results. Patient has a positive antibody test, if patient should need a transfusion it will take longer to receive a compatible unit.
== END 2022-01-01 09:00 | disposition home or self-care (01) ==
LOC: 3 SO LND 22:28
PROVIDERS: ADMIT Obstetrics & Gynecology; ATTEND Obstetrics & Gynecology
DX: O62.9 Abnormality of forces of labor, unspecified (principal); Z3A.38 38 weeks gestation of pregnancy; Z79.899 Other long term (current) drug therapy
CPT/HCPCS: 36415; 80307; 81001; 85025; 86592; 86850; 86870; 86900; 86901; 87086; 96360; 96361; G0378; J7120; G0379